=== PATIENT | female | born 1990 | race American Indian/Alaskan Native ===

== ENCOUNTER 2019-03-30 15:01 | Inpatient (IN) | payer OTHER ==
--- NOTE | 2019-03-30 15:29 | Event Note ---
ED Screening Note ED Screening Note: pt reports she had a "blood sugar of 600" at home reports she took 35 units of humalog +N/V since this morning no diarrhea no fever BG is 84 in triage This initial assessment/diagnostic orders/clinical plan/treatment(s) is/are subject to change based on patients health status, clinical progression and re- assessment by fellow clinical providers in the ED. Further treatment and workup at subsequent clinical providers discretion. Patient/guardian urged not to elope from the ED as their condition may be serious if not clinically assessed and managed. Initial orders include: UA, urine preg, labs
[2019-03-30] MEDS ORDERED: ONDANSETRON 4 MG/2 ML INJ IV ONE (16:00)
[2019-03-30] MEDS ORDERED: SODIUM CHLORIDE 0.9% 1000 ML 1,000 ML IV ONE ×2 (16:00→17:38)
[2019-03-30] MEDS ORDERED: ONDANSETRON 4 MG/2 ML INJ ONE (16:00)
[2019-03-30] MEDS ORDERED: SODIUM CHLORIDE 0.9% 1000 ML 1,000 ML ONE (16:01)
[2019-03-30 16:04] LABS: Basophils # (Auto) 0.1 K/mm3 (0.0-0.1); Basophils % (Auto) 0.7 % (0.0-1.8); Eosinophils % (Auto) 0.1 % (0.0-4.3); Hematocrit 34.6 % (30.3-42.9); Hemoglobin 11.1 gm/dl (10.1-14.3); Lymphocytes # (Auto) 1.8 K/mm3 (1.2-5.4); Mean Corpuscular HGB Conc 32 % (30-34); Mean Corpuscular Volume 79 fl (79-97); Monocytes # (Auto) 0.9 K/mm3 (0.0-0.8); Platelet Count 337 K/mm3 (140-440); Red Blood Count 4.39 M/mm3 (3.65-5.03); Red Cell Distribution Width 17.3 % (13.2-15.2)
[2019-03-30 16:24] LABS: Alanine Aminotransferase 19 units/L (7-56); BUN/Creatinine Ratio 23; Blood Urea Nitrogen 18 mg/dL (7-17); Calcium 9.6 mg/dL (8.4-10.2); Hemolysis Index 17
[2019-03-30] MEDS ORDERED: MORPHINE 4 MG/1 ML INJ IV ONE ×2 (16:40)
--- NOTE | 2019-03-30 17:06 | Emergency Department Report ---
ED Abdominal Pain HPI - General Chief Complaint: Abdominal Pain Stated Complaint: DIABETIC Time Seen by Provider: 03/30/19 15:27 Source: patient Mode of arrival: Ambulatory Limitations: No Limitations - History of Present Illness Initial Comments: Louisa is a 29 yo female with hx of type 1 diabetes since age 7 and diabetic gastroparesis who presents with abdominal pain nausea and vomiting for the past day. She has severe diffuse abdominal pain 10 on a 10 crampy sharp in nature. Gradual onset. She explains that morphine normally improves her pain. No radiation of the pain. She has follow-up with a new GI physician later this month. she receives primary care at the [facility]. Complaint: abdominal pain -: Gradual, days(s) (1) Location: diffuse Radiation: none Migration to: no migration Severity: severe Severity scale (0 -10): 9 Quality: cramping, sharp Improves With: nothing Worsens With: nothing Context: other (history of recurrent abdominal pain, history of several hospitalizations for similar pain) Associated Symptoms: nausea, vomiting - Related Data Previous Rx's Medication Instructions Recorded Last Taken Type Famotidine [Pepcid] 20 mg PO BID #60 tablet 03/09/15 Unknown Rx Insulin NPH/Regular [NovoLIN 70/30] 20 unit SQ QPM #30 ml 03/10/15 04/28/15 Rx Insulin NPH/Regular [NovoLIN 70/30] 30 unit SQ QAM #30 ml 03/10/15 04/29/15 Rx Ondansetron [Zofran TAB] 4 mg PO Q8HR PRN #10 tablet 03/13/15 Unknown Rx HYDROcodone/APAP 5-325 [[place] 1 each PO Q6HR PRN #12 tablet 10/23/15 Unknown Rx 5-325 mg TAB] Allergies Allergy/AdvReac Type Severity Reaction Status Date / Time metoclopramide HCl AdvReac anxiety Verified 03/12/15 09:57 [facility] [place] [facility] ED Review of Systems ROS: Stated complaint: DIABETIC Other details as noted in HPI Comment: All other systems reviewed and negative Constitutional: denies: fever Cardiovascular: denies: chest pain Gastrointestinal: abdominal pain, nausea, vomiting. denies: diarrhea ED Past Medical Hx - Past Medical History Previous Medical History?: Yes Hx Congestive Heart Failure: No Hx Diabetes: Yes Hx GERD: Yes Hx Psychiatric Treatment: Yes (anxiety) Hx Asthma: No Hx COPD: No Hx HIV: No Additional medical history: Gastroparesis - Surgical History Past Surgical History?: No - Social History Smoking Status: Never Smoker Substance Use Type: None - Medications Home Medications: Home Medications Medication Instructions Recorded Confirmed Last Taken Type Famotidine [Pepcid] 20 mg PO BID #60 tablet 03/09/15 04/29/15 Unknown Rx Insulin NPH/Regular [NovoLIN 70/30] 20 unit SQ QPM #30 ml 03/10/15 04/29/15 04/28/15 Rx Insulin NPH/Regular [NovoLIN 70/30] 30 unit SQ QAM #30 ml 03/10/15 04/29/15 04/29/15 Rx Ondansetron [Zofran TAB] 4 mg PO Q8HR PRN #10 tablet 03/13/15 04/29/15 Unknown Rx HYDROcodone/APAP 5-325 [[place] 1 each PO Q6HR PRN #12 tablet 10/23/15 Unknown Rx 5-325 mg TAB] ED Physical Exam - General Limitations: No Limitations General appearance: alert, other (appears uncomfortable actively retching) - Head Head exam: Present: atraumatic, normocephalic - Eye Eye exam: Present: normal appearance - ENT ENT exam: Present: mucous membranes moist - Neck Neck exam: Present: normal inspection, full ROM - Respiratory Respiratory exam: Present: normal lung sounds bilaterally. Absent: respiratory distress, wheezes, rales, rhonchi - Cardiovascular Cardiovascular Exam: Present: regular rate, normal rhythm, normal heart sounds. Absent: systolic murmur, diastolic murmur, rubs, gallop - GI/Abdominal GI/Abdominal exam: Present: soft, normal bowel sounds. Absent: distended, tenderness, guarding, rebound - Extremities Exam Extremities exam: Present: normal inspection - Neurological Exam Neurological exam: Present: alert, oriented X3 - Psychiatric Psychiatric exam: Present: normal affect, normal mood - Skin Skin exam: Present: warm, dry, intact, normal color. Absent: rash ED Course Vital Signs 03/30/19 15:18 Temperature 98.4 F Pulse Rate 117 H Respiratory 22 Rate Blood Pressure 131/85 O2 Sat by Pulse 100 Oximetry ED Medical Decision Making - Lab Data Result diagrams: 03/30/19 15:45 03/30/19 15:45 Laboratory Results - last 24 hr 03/30/19 03/30/19 03/30/19 15:29 15:45 15:45 WBC 13.0 H RBC 4.39 Hgb 11.1 Hct 34.6 MCV 79 MCH 25 L MCHC 32 RDW 17.3 H Plt Count 337 Lymph % (Auto) 14.0 [place] % (Auto) 7.0 Eos % (Auto) 0.1 Baso % (Auto) 0.7 Lymph # 1.8 Graves # 0.9 H Eos # 0.0 Baso # 0.1 Seg Neutrophils % 78.2 H Seg Neutrophils # 10.1 H Sodium 140 Potassium 3.5 L Chloride 103.7 Carbon Dioxide 14 L Anion Gap 26 BUN 18 H Creatinine 0.8 Estimated GFR > 60 BUN/Creatinine Ratio 23 Glucose 97 POC Glucose 84 Calcium 9.6 Total Bilirubin 1.40 H AST 21 ALT 19 Alkaline Phosphatase 87 Total Protein 7.8 Albumin 4.0 Albumin/Globulin Ratio 1.1 Lipase 16 Laboratory Results - last 24 hr 03/30/19 03/30/19 03/30/19 15:29 15:45 15:45 WBC 13.0 H RBC 4.39 Hgb 11.1 Hct 34.6 MCV 79 MCH 25 L MCHC 32 RDW 17.3 H Plt Count 337 Lymph % (Auto) 14.0 [place] % (Auto) 7.0 Eos % (Auto) 0.1 Baso % (Auto) 0.7 Lymph # 1.8 [place] # 0.9 H Eos # 0.0 Baso # 0.1 Seg Neutrophils % 78.2 H Seg Neutrophils # 10.1 H Sodium 140 Potassium 3.5 L Chloride 103.7 Carbon Dioxide 14 L Anion Gap 26 BUN 18 H Creatinine 0.8 Estimated GFR > 60 BUN/Creatinine Ratio 23 Glucose 97 POC Glucose 84 Calcium 9.6 Total Bilirubin 1.40 H AST 21 ALT 19 Alkaline Phosphatase 87 Total Protein 7.8 Albumin 4.0 Albumin/Globulin Ratio 1.1 Lipase 16 Urine Color Urine Turbidity Urine pH Ur Specific [place] Urine Protein Urine Glucose (UA) Urine Ketones Urine Blood Urine Nitrite Urine Bilirubin Urine Urobilinogen Ur Leukocyte Esterase Urine WBC (Auto) Urine RBC (Auto) U Epithel Cells (Auto) Urine Bacteria (Auto) Urine Mucus Urine HCG, Qual 03/30/19 17:15 WBC RBC Hgb Hct MCV MCH MCHC RDW Plt Count Lymph % (Auto) [place] % (Auto) Eos % (Auto) Baso % (Auto) Lymph # [place] # Eos # Baso # Seg Neutrophils % Seg Neutrophils # Sodium Potassium Chloride Carbon Dioxide Anion Gap BUN Creatinine Estimated GFR BUN/Creatinine Ratio Glucose POC Glucose Calcium Total Bilirubin AST ALT Alkaline Phosphatase Total Protein Albumin Albumin/Globulin Ratio Lipase Urine Color Yellow Urine Turbidity Cloudy Urine pH 5.0 Ur Specific [place] 1.021 Urine Protein 100 mg/dl Urine Glucose (UA) >=500 Urine Ketones 80 Urine Blood Lg Urine Nitrite Neg Urine Bilirubin Neg Urine Urobilinogen < 2.0 Ur Leukocyte Esterase Tr Urine WBC (Auto) 12.0 H Urine RBC (Auto) 18.0 U Epithel Cells (Auto) 62.0 H Urine Bacteria (Auto) 4+ Urine Mucus Few Urine HCG, Qual Negative - Medical Decision Making Margarita presents recurrent diffuse abdominal pain and vomiting. Suspect starvation ketosis/volume contraction with increased anion gap and normal blood glucose. Will need admission for IV hydration and symptom control. I do not suspect acute intra-abdominal inflammatory process. Will not obtain imaging at this time without fever/imaging. She has had several CT scans. I am concerned for radiation exposure and possible nephrotoxicity IV contrast. she will be monitored on hospitalist service. I discussed case with Dr. Kumar who agreed to admit Ms. Kaur to Med/Surg floor. UA contaminated with trace ketones. Critical care attestation.: If time is entered above; I have spent that time in minutes in the direct care of this critically ill patient, excluding procedure time. ED Disposition Clinical Impression: Acute abdominal pain, Gastroparesis, Insulin dependent diabetes mellitus, Ketosis Disposition: OP ADMIT IP TO THIS HOSP Is pt being admited?: Yes Does the pt Need Aspirin: No Condition: Stable
[2019-03-30] MEDS ORDERED: LORazepam 2 MG/ML VIAL IV ONE (17:07)
[2019-03-30 17:38] LABS: Bacteria,Urine 4+ /HPF (Negative); Bilirubin,Urine NEG (Negative); Blood,Urine LG (Negative); Color,Urine Yellow (Yellow); Mucus,Urine FEW /HPF; Urobilinogen,Urine < 2.0 mg/dL (<2.0)
[2019-03-30 17:42] LABS: HCG Qualitative,Urine Negative (Negative)
[2019-03-30] MEDS ORDERED: MORPHINE 4 MG/1 ML INJ ONE (19:46)
[2019-03-30] MEDS ORDERED: oxyCODONE /ACETAMINOPHEN 5-325MG TAB PO PRN (20:16)
[2019-03-30] MEDS ORDERED: ACETAMINOPHEN 325 MG TAB PO PRN (20:16)
[2019-03-30] MEDS: HYDROmorphone 1 MG/1 ML INJ IV PRN (20:45)
[2019-03-30] MEDS: INSULIN LISPRO 100 UNIT/ML SUB-Q SCH (22:19)
[2019-03-30] MEDS: ONDANSETRON 4 MG/2 ML INJ IV PRN (22:34)
[2019-03-30] MEDS ORDERED: SODIUM CHLORIDE 0.9% 1000 ML 1,000 ML IV SCH (23:45)
[2019-03-31] MEDS: HYDROmorphone 1 MG/1 ML INJ IV PRN ×6 (00:13→21:33)
[2019-03-31] MEDS: INSULIN LISPRO 100 UNIT/ML SUB-Q SCH ×2 (00:31→07:02)
[2019-03-31] MEDS: ONDANSETRON 4 MG/2 ML INJ IV PRN ×4 (02:49→17:03)
--- NOTE | 2019-03-31 04:10 | History and Physical Report ---
History of Present Illness Date of examination: 03/30/19 Date of admission: 03/30/19 17:26 Chief complaint: Abd pain and vomiting for 1 day History of present illness: 29 yo female with hx of type 1 diabetes since age 7 and diabetic gastroparesis who presents with abdominal pain nausea and vomiting for the past one day. She has severe diffuse abdominal pain 10 on a 10 crampy sharp in nature. Gradual onset. She explains that morphine normally improves her pain. No radiation of the pain. She has follow-up with a new GI physician later this month. she receives primary care at the [facility]. Past Medical History Previous Medical History?: Yes Diabetes GERD Anxiety Gastroparesis Surgical History Past Surgical History?: No Social History Smoking Status: Never Smoker Substance Use Type: None Family History Htn - Medications Home Medications: Home Medications Medication Instructions Recorded Confirmed Last Taken Type Famotidine [Pepcid] 20 mg PO BID #60 tablet 03/09/15 04/29/15 Unknown Rx Insulin NPH/Regular [NovoLIN 70/30] 20 unit SQ QPM #30 ml 03/10/15 04/29/15 04/28/15 Rx Insulin NPH/Regular [NovoLIN 70/30] 30 unit SQ QAM #30 ml 03/10/15 04/29/15 04/29/15 Rx Ondansetron [Zofran TAB] 4 mg PO Q8HR PRN #10 tablet 03/13/15 04/29/15 Unknown Rx HYDROcodone/APAP 5-325 [[place] 1 each PO Q6HR PRN #12 tablet 10/23/15 Unknown Rx 5-325 mg TAB] Review of Systems ROS: Stated complaint: DIABETIC Other details as noted in HPI Comment: All other systems reviewed and negative Constitutional: denies: fever Cardiovascular: denies: chest pain Gastrointestinal: abdominal pain, nausea, vomiting. denies: diarrhea Medications and Allergies Allergies Allergy/AdvReac Type Severity Reaction Status Date / Time metoclopramide HCl AdvReac anxiety Verified 03/12/15 09:57 [From Reglan] Active Meds: Active Medications Acetaminophen (Tylenol) 650 mg PO Q4H PRN PRN Reason: Pain MILD(1-3)/Fever >100.5/AGUIRRE Hydromorphone HCl (Dilaudid) 1 mg IV Q3H PRN PRN Reason: Pain , Severe (7-10) Last Admin: 03/31/19 00:13 Dose: 1 mg Documented by: Sodium Chloride (Nacl 0.9% 1000 Ml) 1,000 mls @ 100 mls/hr IV DIRECT WINIFRED Stop: 03/31/19 12:00 Insulin Human Lispro (Humalog) 0 unit SUB-Q Q6HR WINIFRED; Protocol Last Admin: 03/31/19 00:31 Dose: Not Given Documented by: Ondansetron HCl (Zofran) 4 mg IV Q3H PRN PRN Reason: Nausea And Vomiting Last Admin: 03/31/19 02:49 Dose: 4 mg Documented by: Oxycodone/Acetaminophen (Percocet 5/325) 1 tab PO Q6H PRN PRN Reason: Pain, Moderate (4-6) Sodium Chloride (Sodium Chloride Flush Syringe 10 Ml) 10 ml IV BID WINIFRED Last Admin: 03/30/19 22:16 Dose: 10 ml Documented by: Sodium Chloride (Sodium Chloride Flush Syringe 10 Ml) 10 ml IV PRN PRN PRN Reason: LINE FLUSH Exam - Constitutional Vitals: Temp Pulse Resp BP Pulse Ox 98.1 F 121 H 18 153/88 100 03/30/19 23:35 03/30/19 23:35 03/30/19 23:35 03/30/19 23:35 03/30/19 23:35 General appearance: Present: no acute distress, well-nourished - EENT Eyes: Present: PERRL ENT: hearing intact, clear oral mucosa - Neck Neck: Present: supple, normal ROM - Respiratory Respiratory effort: normal Respiratory: bilateral: CTA - Cardiovascular Heart rate: 78 Rhythm: regular Heart Sounds: Present: S1 & S2. Absent: rub, click - Extremities Extremities: pulses intact, pulses symmetrical, No edema Peripheral Pulses: within normal limits - Abdominal General gastrointestinal: Present: soft, tender, non-distended, normal bowel sounds Localized gastrointestinal: tender: diffuse Female genitourinary: Present: normal - Rectal Rectal Exam: deferred - Integumentary Integumentary: Present: clear, warm, dry - Musculoskeletal Musculoskeletal: gait normal, strength equal bilaterally - Psychiatric Psychiatric: appropriate mood/affect, intact judgment & insight - Neurologic Neurologic: CNII-XII intact, moves all extremities - Allied Health Allied health notes reviewed: nursing, case management Results - Labs CBC & Chem 7: 03/30/19 15:45 03/30/19 15:45 Labs: Laboratory Last Values WBC 13.0 K/mm3 (4.5-11.0) H 03/30/19 15:45 RBC 4.39 M/mm3 (3.65-5.03) 03/30/19 15:45 Hgb 11.1 gm/dl (10.1-14.3) 03/30/19 15:45 Hct 34.6 % (30.3-42.9) 03/30/19 15:45 MCV 79 fl (79-97) 03/30/19 15:45 MCH 25 pg (28-32) L 03/30/19 15:45 MCHC 32 % (30-34) 03/30/19 15:45 RDW 17.3 % (13.2-15.2) H 03/30/19 15:45 Plt Count 337 K/mm3 (140-440) 03/30/19 15:45 Lymph % (Auto) 14.0 % (13.4-35.0) 03/30/19 15:45 [place] % (Auto) 7.0 % (0.0-7.3) 03/30/19 15:45 Eos % (Auto) 0.1 % (0.0-4.3) 03/30/19 15:45 Baso % (Auto) 0.7 % (0.0-1.8) 03/30/19 15:45 Lymph # 1.8 K/mm3 (1.2-5.4) 03/30/19 15:45 [place] # 0.9 K/mm3 (0.0-0.8) H 03/30/19 15:45 Eos # 0.0 K/mm3 (0.0-0.4) 03/30/19 15:45 Baso # 0.1 K/mm3 (0.0-0.1) 03/30/19 15:45 Seg Neutrophils % 78.2 % (40.0-70.0) H 03/30/19 15:45 Seg Neutrophils # 10.1 K/mm3 (1.8-7.7) H 03/30/19 15:45 VBG pH 7.340 (7.320-7.420) 03/30/19 17:52 Sodium 140 mmol/L (137-145) 03/30/19 15:45 Potassium 3.5 mmol/L (3.6-5.0) L 03/30/19 15:45 Chloride 103.7 mmol/L (98-107) 03/30/19 15:45 Carbon Dioxide 14 mmol/L (22-30) L 03/30/19 15:45 Anion Gap 26 mmol/L 03/30/19 15:45 BUN 18 mg/dL (7-17) H 03/30/19 15:45 Creatinine 0.8 mg/dL (0.7-1.2) 03/30/19 15:45 Estimated GFR > 60 ml/min 03/30/19 15:45 BUN/Creatinine Ratio 23 % 03/30/19 15:45 Glucose 97 mg/dL (65-100) 03/30/19 15:45 POC Glucose 495 (70-105) H 03/30/19 21:54 Hemoglobin A1c 9.1 % (4-6) H 03/30/19 20:17 Ketones Quantitative Negative (Negative) 03/30/19 17:52 Calcium 9.6 mg/dL (8.4-10.2) 03/30/19 15:45 Total Bilirubin 1.40 mg/dL (0.1-1.2) H 03/30/19 15:45 AST 21 units/L (5-40) 03/30/19 15:45 ALT 19 units/L (7-56) 03/30/19 15:45 Alkaline Phosphatase 87 units/L (35-129) 03/30/19 15:45 Total Protein 7.8 g/dL (6.3-8.2) 03/30/19 15:45 Albumin 4.0 g/dL (3.9-5) 03/30/19 15:45 Albumin/Globulin Ratio 1.1 % 03/30/19 15:45 Lipase 16 units/L (13-60) 03/30/19 15:45 Urine Color Yellow (Yellow) 03/30/19 17:15 Urine Turbidity Cloudy (Clear) 03/30/19 17:15 Urine pH 5.0 (5.0-7.0) 03/30/19 17:15 Ur Specific [place] 1.021 (1.003-1.030) 03/30/19 17:15 Urine Protein 100 mg/dl mg/dL (Negative) 03/30/19 17:15 Urine Glucose (UA) >=500 mg/dL (Negative) 03/30/19 17:15 Urine Ketones 80 mg/dL (Negative) 03/30/19 17:15 Urine Blood Lg (Negative) 03/30/19 17:15 Urine Nitrite Neg (Negative) 03/30/19 17:15 Urine Bilirubin Neg (Negative) 03/30/19 17:15 Urine Urobilinogen < 2.0 mg/dL (<2.0) 03/30/19 17:15 Ur Leukocyte Esterase Tr (Negative) 03/30/19 17:15 Urine WBC (Auto) 12.0 /HPF (0.0-6.0) H 03/30/19 17:15 Urine RBC (Auto) 18.0 /HPF (0.0-6.0) 03/30/19 17:15 U Epithel Cells (Auto) 62.0 /HPF (0-13.0) H 03/30/19 17:15 Urine Bacteria (Auto) 4+ /HPF (Negative) 03/30/19 17:15 Urine Mucus Few /HPF 03/30/19 17:15 Urine HCG, Qual Negative (Negative) 03/30/19 17:15 Assessment and Plan Advance Directives: Yes (Full code) VTE prophylaxis?: Chemical Plan of care discussed with patient/family: Yes - Patient Problems (1) Gastroparesis Current Visit: Yes Status: Acute Plan to address problem: Cont IV Fluids. IV Reglan IV Zofran (2) Insulin dependent diabetes mellitus Current Visit: Yes Status: Chronic Plan to address problem: Cont Home insulin and coverage Check A1c (3) Hypokalemia Current Visit: Yes Status: Acute Plan to address problem: supplemented (4) DVT prophylaxis Current Visit: No Status: Acute Plan to address problem: Heparin and GI prophylaxis
[2019-03-31] MEDS ORDERED: POTASSIUM CHLORIDE ER 20 MEQ TAB PO ONE (04:20)
[2019-03-31] MEDS: POTASSIUM CHLORIDE 10 MEQ 10 MEQ/100 ML BAG IV SCH ×2 (06:42→07:43)
[2019-03-31 07:35] LABS: Mean Corpuscular HGB Conc 30 % (30-34); Mean Corpuscular Volume 84 fl (79-97); Platelet Count 348 K/mm3 (140-440); Red Blood Count 3.75 M/mm3 (3.65-5.03)
[2019-03-31 07:51] LABS: Hematocrit 31.3 % (30.3-42.9); Hemoglobin 9.4 gm/dl (10.1-14.3)
[2019-03-31 07:55] LABS: Alanine Aminotransferase 21 units/L (7-56); BUN/Creatinine Ratio 23; Blood Urea Nitrogen 27 mg/dL (7-17); Calcium 8.8 mg/dL (8.4-10.2); Hemolysis Index 1
[2019-03-31] MEDS ORDERED: SODIUM CHLORIDE 0.9% 1000 ML 1,000 ML IV ONE ×2 (09:55→12:33)
[2019-03-31] MEDS ORDERED: POTASSIUM CHLORIDE 20 MEQ 20 MEQ/100 ML BAG IV SCH ×2 (10:00)
--- NOTE | 2019-03-31 10:08 | Progress Note ---
Assessment and Plan Assessment and plan: --DKA : Transfer norman ICU Initiate DKA pathway aggressiveIV hydration, insulin drip Monitor electrolytes,Nothing by mouth Cr,Care consult. -Severe metabolic acidosis; secondary to DKA Aggressive IV hydration, replacement therapy if no improvement --Severe dehydration; Vigorous IV hydration Input output monitoring --Gastroparesis; Patient allergic to Metoclopramide, Zofran ,Supportive care --Hyperkalemia: hold potassium therapy monitor electrolytes --Obesity; BMI 40.0 Advise weight reduction many medically stable --DVT prophylaxis; Lovenox Monitor closely and adjust the management as needed. Cr Care time 50 min History Interval history: Patient was admitted with gastroparesis and uncontrolled diabetes this morning patient's blood sugars are >600 Metabolic acidosis, elevated Agap The patient is in mild distress, severely dehydrated Hospitalist Physical - Constitutional Vitals: Temp Pulse Resp BP Pulse Ox 98.6 F 119 H 18 105/48 100 03/31/19 06:28 03/31/19 06:28 03/31/19 06:28 03/31/19 06:28 03/31/19 06:28 General appearance: Present: severe distress, well-nourished - EENT Eyes: Present: PERRL, EOM intact - Neck Neck: Present: supple, normal ROM - Respiratory Respiratory effort: normal Respiratory: bilateral: diminished, negative: rales, rhonchi, wheezing - Cardiovascular Rhythm: regular Heart Sounds: Present: S1 & S2 - Extremities Extremities: no ischemia, No edema - Abdominal General gastrointestinal: soft, non-tender, non-distended, normal bowel sounds - Integumentary Integumentary: Present: clear, warm - Psychiatric Psychiatric: appropriate mood/affect, cooperative - Neurologic Neurologic: moves all extremities Results - Labs CBC & Chem 7: 03/31/19 07:09 03/31/19 07:09 Labs: Laboratory Last Values WBC 13.6 K/mm3 (4.5-11.0) H 03/31/19 07:09 RBC 3.75 M/mm3 (3.65-5.03) 03/31/19 07:09 Hgb 9.4 gm/dl (10.1-14.3) L 03/31/19 07:09 Hct 31.3 % (30.3-42.9) 03/31/19 07:09 MCV 84 fl (79-97) 03/31/19 07:09 MCH 25 pg (28-32) L 03/31/19 07:09 MCHC 30 % (30-34) 03/31/19 07:09 RDW 18.0 % (13.2-15.2) H 03/31/19 07:09 Plt Count 348 K/mm3 (140-440) 03/31/19 07:09 Lymph % (Auto) 14.0 % (13.4-35.0) 03/30/19 15:45 [place] % (Auto) 7.0 % (0.0-7.3) 03/30/19 15:45 Eos % (Auto) 0.1 % (0.0-4.3) 03/30/19 15:45 Baso % (Auto) 0.7 % (0.0-1.8) 03/30/19 15:45 Lymph # 1.8 K/mm3 (1.2-5.4) 03/30/19 15:45 [place] # 0.9 K/mm3 (0.0-0.8) H 03/30/19 15:45 Eos # 0.0 K/mm3 (0.0-0.4) 03/30/19 15:45 Baso # 0.1 K/mm3 (0.0-0.1) 03/30/19 15:45 Seg Neutrophils % Knit [place]ing [place] 03/31/19 07:09 Seg Neutrophils # 10.1 K/mm3 (1.8-7.7) H 03/30/19 15:45 VBG pH 7.340 (7.320-7.420) 03/30/19 17:52 Sodium 140 mmol/L (137-145) 03/31/19 07:09 Potassium 5.9 mmol/L (3.6-5.0) H D 03/31/19 07:09 Chloride 101.8 mmol/L (98-107) 03/31/19 07:09 Carbon Dioxide 8 mmol/L (22-30) L* 03/31/19 07:09 Anion Gap 36 mmol/L 03/31/19 07:09 BUN 27 mg/dL (7-17) H 03/31/19 07:09 Creatinine 1.2 mg/dL (0.7-1.2) 03/31/19 07:09 Estimated GFR > 60 ml/min 03/31/19 07:09 BUN/Creatinine Ratio 23 % 03/31/19 07:09 Glucose 681 mg/dL (65-100) H* 03/31/19 07:09 POC Glucose > 500 (70-105) H 03/31/19 07:41 Hemoglobin A1c 9.1 % (4-6) H 03/30/19 20:17 Ketones Quantitative Negative (Negative) 03/30/19 17:52 Calcium 8.8 mg/dL (8.4-10.2) 03/31/19 07:09 Total Bilirubin 1.00 mg/dL (0.1-1.2) 03/31/19 07:09 AST 20 units/L (5-40) 03/31/19 07:09 ALT 21 units/L (7-56) 03/31/19 07:09 Alkaline Phosphatase 85 units/L (35-129) 03/31/19 07:09 Total Protein 7.5 g/dL (6.3-8.2) 03/31/19 07:09 Albumin 4.0 g/dL (3.9-5) 03/31/19 07:09 Albumin/Globulin Ratio 1.1 % 03/31/19 07:09 Lipase 16 units/L (13-60) 03/30/19 15:45 Urine Color Yellow (Yellow) 03/30/19 17:15 Urine Turbidity Cloudy (Clear) 03/30/19 17:15 Urine pH 5.0 (5.0-7.0) 03/30/19 17:15 Ur Specific [place] 1.021 (1.003-1.030) 03/30/19 17:15 Urine Protein 100 mg/dl mg/dL (Negative) 03/30/19 17:15 Urine Glucose (UA) >=500 mg/dL (Negative) 03/30/19 17:15 Urine Ketones 80 mg/dL (Negative) 03/30/19 17:15 Urine Blood Lg (Negative) 03/30/19 17:15 Urine Nitrite Neg (Negative) 03/30/19 17:15 Urine Bilirubin Neg (Negative) 03/30/19 17:15 Urine Urobilinogen < 2.0 mg/dL (<2.0) 03/30/19 17:15 Ur Leukocyte Esterase Tr (Negative) 03/30/19 17:15 Urine WBC (Auto) 12.0 /HPF (0.0-6.0) H 03/30/19 17:15 Urine RBC (Auto) 18.0 /HPF (0.0-6.0) 03/30/19 17:15 U Epithel Cells (Auto) 62.0 /HPF (0-13.0) H 03/30/19 17:15 Urine Bacteria (Auto) 4+ /HPF (Negative) 03/30/19 17:15 Urine Mucus Few /HPF 03/30/19 17:15 Urine HCG, Qual Negative (Negative) 03/30/19 17:15 Active Medications - Current Medications Current Medications: Generic Name Dose Route Start Last Admin Trade Name Freq PRN Reason Stop Dose Admin Acetaminophen 650 mg 03/30/19 20:16 Tylenol PO Q4H PRN Pain MILD(1-3)/Fever >100.5/AGUIRRE Heparin Sodium (Porcine) 5,000 unit 03/31/19 10:00 Heparin SUB-Q Q12HR ON LICENSE OF [facility] Hydromorphone HCl 1 mg 03/30/19 20:16 03/31/19 05:48 Dilaudid IV 1 mg Q3H PRN Administration Pain , Severe (7-10) Sodium Chloride 1,000 mls @ 100 mls/hr 03/30/19 23:45 Nacl 0.9% 1000 Ml IV 03/31/19 12:00 DIRECT WINIFRED Insulin Human Regular 100 100 mls @ 1 mls/hr 03/31/19 10:00 units/ Sodium Chloride IV TITR WINIFRED Protocol 1 UNITS/HR Sodium Chloride 1,000 mls @ 999 mls/hr 03/31/19 09:55 Nacl 0.9% 1000 Ml IV 03/31/19 10:55 BOLUS ONE Potassium Chloride 20 meq in 100 mls @ 100 mls/hr 03/31/19 10:00 Kcl 20meq/100ml IV 03/31/19 12:59 Q1H WINIFRED Potassium Chloride 20 meq in 100 mls @ 100 mls/hr 03/31/19 10:00 Kcl 20meq/100ml IV 03/31/19 11:59 Q1H WINIFRED Insulin Human Lispro 0 unit 03/30/19 21:00 03/31/19 07:02 Humalog SUB-Q 8 unit Q6HR WINIFRED Administration Protocol Ondansetron HCl 4 mg 03/30/19 20:16 03/31/19 05:48 Zofran IV 4 mg Q3H PRN Administration Nausea And Vomiting Oxycodone/Acetaminophen 1 tab 03/30/19 20:16 Percocet 5/325 PO Q6H PRN Pain, Moderate (4-6) Sodium Chloride 10 ml 03/30/19 22:00 03/30/19 22:16 Sodium Chloride Flush Syringe 10 Ml IV 10 ml BID WINIFRED Administration Sodium Chloride 10 ml 03/30/19 20:16 Sodium Chloride Flush Syringe 10 Ml IV PRN PRN LINE FLUSH
[2019-03-31] MEDS: HEPARIN 5,000 UNIT/1 ML VIAL SUB-Q SCH ×2 (10:25→21:37)
[2019-03-31 11:21] LABS: Basophils % (Manual) 0 % (0.0-1.8); Eosinophils % (Manual) 0 % (0.0-4.3); Total Cells Counted 100
[2019-03-31 11:23] LABS: Hypochromasia Few; Platelet Estimate Consistent w Auto
[2019-03-31] MEDS ORDERED: SODIUM CHLORIDE 0.9% 1000 ML 1,000 ML IV SCH (12:15)
[2019-03-31] MEDS ORDERED: PROMETHAZINE 12.5 MG RECT SUPP PR PRN (12:34)
[2019-03-31] MEDS: INSULIN REGULAR, HUMAN 100 UNITS in SODIUM CHLORIDE 0.9% 99 ML IV SCH (12:36)
[2019-03-31] MEDS ORDERED: DEXTROSE 50% IN WATER (25GM) 50 ML SYRINGE IV PRN (12:38)
[2019-03-31] MEDS ORDERED: INSULIN REGULAR, HUMAN 100 UNITS in SODIUM CHLORIDE 0.9% 99 ML IV SCH (13:00)
--- NOTE | 2019-03-31 13:23 | Consultation ---
History of Present Illness - Reason for Consult Consult date: 03/31/19 DKA Requesting physician: PAIGE MCFARLAND - History of Present Illness 29 y/o female who was admitted nausea vomiting and abdominal pain. Has known type 1 diabetes and gastoparesis. patient was admitted to the floor but labs this am show elevated blood sugar and CO2 of 8. Pt transitioned to the ICU for further management. Past History Past Medical History: diabetes Social history: no significant social history Family history: no significant family history Medications and Allergies Allergies Allergy/AdvReac Type Severity Reaction Status Date / Time metoclopramide HCl AdvReac anxiety Verified 03/12/15 09:57 [From Reglan] Active Meds: Active Medications Acetaminophen (Tylenol) 650 mg PO Q4H PRN PRN Reason: Pain MILD(1-3)/Fever >100.5/AGUIRRE Dextrose (D50w (25gm) Syringe) 0 ml IV Q30MIN PRN; Protocol PRN Reason: Hypoglycemia Heparin Sodium (Porcine) (Heparin) 5,000 unit SUB-Q Q12HR WINIFRED Last Admin: 03/31/19 10:25 Dose: Not Given Documented by: Hydromorphone HCl (Dilaudid) 1 mg IV Q3H PRN PRN Reason: Pain , Severe (7-10) Last Admin: 03/31/19 13:00 Dose: 1 mg Documented by: Insulin Human Regular 100 (units/ Sodium Chloride) 100 mls @ 1 mls/hr IV TITR WINIFRED; Protocol Last Admin: 03/31/19 12:36 Dose: 8 units/hr, 8 mls/hr Documented by: Sodium Chloride (Nacl 0.9% 1000 Ml) 1,000 mls @ 150 mls/hr IV DIRECT WINIFRED Last Admin: 03/31/19 12:19 Dose: 150 mls/hr Documented by: Potassium Chloride/Dextrose/Sod Cl (D5w/0.45% Nacl/Kcl 20 Meq) 20 meq in 1,000 mls @ 125 mls/hr IV DIRECT WINIFRED Ondansetron HCl (Zofran) 4 mg IV Q3H PRN PRN Reason: Nausea And Vomiting Last Admin: 03/31/19 12:17 Dose: 4 mg Documented by: Oxycodone/Acetaminophen (Percocet 5/325) 1 tab PO Q6H PRN PRN Reason: Pain, Moderate (4-6) Promethazine HCl (Phenergan) 12.5 mg MS Q6H PRN PRN Reason: Nausea And Vomiting Last Admin: 03/31/19 12:57 Dose: 12.5 mg Documented by: Sodium Chloride (Sodium Chloride Flush Syringe 10 Ml) 10 ml IV BID WINIFRED Last Admin: 03/31/19 10:25 Dose: Not Given Documented by: Sodium Chloride (Sodium Chloride Flush Syringe 10 Ml) 10 ml IV PRN PRN PRN Reason: LINE FLUSH Review of Systems All systems: negative Exam - Constitutional Vitals: Temp Pulse Resp BP Pulse Ox 98.1 F 124 H 21 97/47 99 03/31/19 11:00 03/31/19 13:08 03/31/19 13:10 03/31/19 10:31 03/31/19 10:31 Results - Labs CBC & Chem 7: 03/31/19 07:09 03/31/19 07:09 Labs: Abnormal lab results 03/30/19 03/30/19 03/30/19 Range/Units 15:45 15:45 17:15 WBC 13.0 H (4.5-11.0) K/mm3 Hgb (10.1-14.3) gm/dl MCH 25 L (28-32) pg RDW 17.3 H (13.2-15.2) % [place] # 0.9 H (0.0-0.8) K/mm3 Seg Neutrophils % 78.2 H (40.0-70.0) % Seg Neuts % (Manual) (40.0-70.0) % Lymphocytes % (Manual) (13.4-35.0) % Seg Neutrophils # 10.1 H (1.8-7.7) K/mm3 Seg Neutrophils # Man (1.8-7.7) K/mm3 Lymphocytes # (Manual) (1.2-5.4) K/mm3 Potassium 3.5 L (3.6-5.0) mmol/L Carbon Dioxide 14 L (22-30) mmol/L BUN 18 H (7-17) mg/dL Glucose (65-100) mg/dL POC Glucose (70-105) Hemoglobin A1c (4-6) % Total Bilirubin 1.40 H (0.1-1.2) mg/dL Urine WBC (Auto) 12.0 H (0.0-6.0) /HPF U Epithel Cells (Auto) 62.0 H (0-13.0) /HPF 03/30/19 03/30/19 03/31/19 Range/Units 20:17 21:54 06:35 WBC (4.5-11.0) K/mm3 Hgb (10.1-14.3) gm/dl MCH (28-32) pg RDW (13.2-15.2) % [place] # (0.0-0.8) K/mm3 Seg Neutrophils % (40.0-70.0) % Seg Neuts % (Manual) (40.0-70.0) % Lymphocytes % (Manual) (13.4-35.0) % Seg Neutrophils # (1.8-7.7) K/mm3 Seg Neutrophils # Man (1.8-7.7) K/mm3 Lymphocytes # (Manual) (1.2-5.4) K/mm3 Potassium (3.6-5.0) mmol/L Carbon Dioxide (22-30) mmol/L BUN (7-17) mg/dL Glucose (65-100) mg/dL POC Glucose 495 H > 500 H (70-105) Hemoglobin A1c 9.1 H (4-6) % Total Bilirubin (0.1-1.2) mg/dL Urine WBC (Auto) (0.0-6.0) /HPF U Epithel Cells (Auto) (0-13.0) /HPF 03/31/19 03/31/19 03/31/19 Range/Units 07:09 07:09 07:41 WBC 13.6 H (4.5-11.0) K/mm3 Hgb 9.4 L (10.1-14.3) gm/dl MCH 25 L (28-32) pg RDW 18.0 H (13.2-15.2) % [place] # (0.0-0.8) K/mm3 Seg Neutrophils % (40.0-70.0) % Seg Neuts % (Manual) 93.0 H (40.0-70.0) % Lymphocytes % (Manual) 6.0 L (13.4-35.0) % Seg Neutrophils # (1.8-7.7) K/mm3 Seg Neutrophils # Man 12.6 H (1.8-7.7) K/mm3 Lymphocytes # (Manual) 0.8 L (1.2-5.4) K/mm3 Potassium 5.9 H D (3.6-5.0) mmol/L Carbon Dioxide 8 L* (22-30) mmol/L BUN 27 H (7-17) mg/dL Glucose 681 H* (65-100) mg/dL POC Glucose > 500 H (70-105) Hemoglobin A1c (4-6) % Total Bilirubin (0.1-1.2) mg/dL Urine WBC (Auto) (0.0-6.0) /HPF U Epithel Cells (Auto) (0-13.0) /HPF 03/31/19 Range/Units 12:46 WBC (4.5-11.0) K/mm3 Hgb (10.1-14.3) gm/dl MCH (28-32) pg RDW (13.2-15.2) % [place] # (0.0-0.8) K/mm3 Seg Neutrophils % (40.0-70.0) % Seg Neuts % (Manual) (40.0-70.0) % Lymphocytes % (Manual) (13.4-35.0) % Seg Neutrophils # (1.8-7.7) K/mm3 Seg Neutrophils # Man (1.8-7.7) K/mm3 Lymphocytes # (Manual) (1.2-5.4) K/mm3 Potassium (3.6-5.0) mmol/L Carbon Dioxide (22-30) mmol/L BUN (7-17) mg/dL Glucose (65-100) mg/dL POC Glucose 483 H (70-105) Hemoglobin A1c (4-6) % Total Bilirubin (0.1-1.2) mg/dL Urine WBC (Auto) (0.0-6.0) /HPF U Epithel Cells (Auto) (0-13.0) /HPF Assessment and Plan 29 y/o female, type 1 diabetic, admitted with DKA 1. NPO 2. IVF's, will given 2 additional boluses 3. Patient allergic to Reglan. Asleep right now from dilaudid given for pain. Will need to find out what allergy is. 4. Insulin drip 5. Q1hour FSBS. Once less than 250, switch to D5. 6. Will need chemistries every 6 hours. CCT 31 minutes.
[2019-03-31] MEDS ORDERED: SODIUM CHLORIDE 0.9% 1000 ML 2,000 ML IV ONE (14:00)
[2019-03-31] MEDS ORDERED: oxyCODONE /ACETAMINOPHEN 5-325MG TAB PO PRN (15:01)
[2019-03-31] MEDS: LORazepam 0.5 MG TAB PO PRN (16:04)
[2019-03-31] MEDS: D5W/0.45% NACL/KCL 20 MEQ 20 MEQ/1,000 ML BAG IV SCH ×2 (16:08→23:33)
[2019-03-31 16:10] LABS: Calcium 7.7 mg/dL (8.4-10.2)
[2019-03-31 23:57] LABS: BUN/Creatinine Ratio 17; Blood Urea Nitrogen 15 mg/dL (7-17); Calcium 8.1 mg/dL (8.4-10.2); Hemolysis Index 37
[2019-04-01] MEDS: HYDROmorphone 1 MG/1 ML INJ IV PRN ×2 (01:51→05:55)
[2019-04-01] MEDS: ONDANSETRON 4 MG/2 ML INJ IV PRN ×3 (01:51→23:30)
[2019-04-01] MEDS: INSULIN REGULAR, HUMAN 100 UNITS in SODIUM CHLORIDE 0.9% 99 ML IV SCH (03:51)
[2019-04-01 05:24] LABS: BUN/Creatinine Ratio 13; Blood Urea Nitrogen 9 mg/dL (7-17); Calcium 8.5 mg/dL (8.4-10.2); Hemolysis Index 25
[2019-04-01] MEDS ORDERED: HYDROmorphone 1 MG/1 ML INJ IV PRN (08:18)
[2019-04-01] MEDS: D5W/0.45% NACL/KCL 20 MEQ 20 MEQ/1,000 ML BAG IV SCH (08:42)
[2019-04-01] MEDS ORDERED: POTASSIUM PHOSPHATE 40 MMOL in SODIUM CHLORIDE 0.9% 500 ML 500 ML IV ONE (09:00)
[2019-04-01] MEDS: HEPARIN 5,000 UNIT/1 ML VIAL SUB-Q SCH ×2 (10:00→22:11)
[2019-04-01] MEDS: PROMETHAZINE 25 MG RECT SUPP PR PRN ×2 (10:02→16:25)
--- NOTE | 2019-04-01 10:26 | Progress Note ---
Assessment and Plan Assessment and plan: --DKA : Improved Blood sugars reasonably level, start ADA diet DC insulin drip, start long-acting insulin Change IV fluids to normal saline Diabetic education, diabetic diet education Closely monitor blood sugars and adjust management as needed Hemoglobin A1c 9.1 -Severe metabolic acidosis; secondary to DKA Significantly improved, continue IV hydration --Severe dehydration; encourage plenty fluids Vigorous IV hydration Input output monitoring --Gastroparesis; Patient allergic to Metoclopramide, The new Zofran ,Supportive care --Hypokalemia/hypophosphatemia Replace with K-Phos closely monitor electrolytes: --DVT prophylaxis; Lovenox Monitor closely and adjust the management as needed. If patient's blood sugars are reasonably level and is able to tolerate oral nutrition Patient may be transferred to ICU medical flow Case management for discharge planning Home healthfor disease monitoring Caregiver to the patient, her nurse and case management Cr Care time 40 min History Interval history: Patient seen and examined medical records reviewed Patient was admitted to ICU yesterday for DKA severe acidosis Intractable nausea vomiting, on DKA Patient's sugars are reasonable level, and the wound closed Acidosis improved, gastroparesis mild improvement Start ADA diet, DC insulin drip, long-acting insulin Patient complains of nausea, denies vomiting Vital signs reviewed Hospitalist Physical - Constitutional Vitals: Temp Pulse Resp BP Pulse Ox 97.8 F 111 H 12 151/69 100 04/01/19 08:00 04/01/19 08:00 04/01/19 08:00 03/31/19 16:41 04/01/19 08:00 General appearance: Present: no acute distress, well-nourished - EENT Eyes: Present: PERRL, EOM intact - Neck Neck: Present: supple, normal ROM - Respiratory Respiratory effort: normal Respiratory: bilateral: diminished, negative: rales, rhonchi, wheezing - Cardiovascular Rhythm: regular Heart Sounds: Present: S1 & S2 - Extremities Extremities: no ischemia, pulses intact - Abdominal General gastrointestinal: soft, non-tender, non-distended, normal bowel sounds - Integumentary Integumentary: Present: clear, warm - Psychiatric Psychiatric: appropriate mood/affect, cooperative - Neurologic Neurologic: CNII-XII intact, moves all extremities Results - Labs CBC & Chem 7: 03/31/19 07:09 04/01/19 04:34 Labs: Laboratory Last Values WBC 13.6 K/mm3 (4.5-11.0) H 03/31/19 07:09 RBC 3.75 M/mm3 (3.65-5.03) 03/31/19 07:09 Hgb 9.4 gm/dl (10.1-14.3) L 03/31/19 07:09 Hct 31.3 % (30.3-42.9) 03/31/19 07:09 MCV 84 fl (79-97) 03/31/19 07:09 MCH 25 pg (28-32) L 03/31/19 07:09 MCHC 30 % (30-34) 03/31/19 07:09 RDW 18.0 % (13.2-15.2) H 03/31/19 07:09 Plt Count 348 K/mm3 (140-440) 03/31/19 07:09 Lymph % (Auto) 14.0 % (13.4-35.0) 03/30/19 15:45 [place] % (Auto) 7.0 % (0.0-7.3) 03/30/19 15:45 Eos % (Auto) 0.1 % (0.0-4.3) 03/30/19 15:45 Baso % (Auto) 0.7 % (0.0-1.8) 03/30/19 15:45 Lymph # 1.8 K/mm3 (1.2-5.4) 03/30/19 15:45 [place] # 0.9 K/mm3 (0.0-0.8) H 03/30/19 15:45 Eos # 0.0 K/mm3 (0.0-0.4) 03/30/19 15:45 Baso # 0.1 K/mm3 (0.0-0.1) 03/30/19 15:45 Add Manual Diff Complete 03/31/19 07:09 Total Counted 100 03/31/19 07:09 Seg Neutrophils % Manager Of Procurement 03/31/19 07:09 Seg Neuts % (Manual) 93.0 % (40.0-70.0) H 03/31/19 07:09 Band Neutrophils % 0 % 03/31/19 07:09 Lymphocytes % (Manual) 6.0 % (13.4-35.0) L 03/31/19 07:09 Reactive Lymphs % (Man) 0 % 03/31/19 07:09 Monocytes % (Manual) 1.0 % (0.0-7.3) 03/31/19 07:09 Eosinophils % (Manual) 0 % (0.0-4.3) 03/31/19 07:09 Basophils % (Manual) 0 % (0.0-1.8) 03/31/19 07:09 Metamyelocytes % 0 % 03/31/19 07:09 Myelocytes % 0 % 03/31/19 07:09 Promyelocytes % 0 % 03/31/19 07:09 Blast Cells % 0 % 03/31/19 07:09 Nucleated RBC % Not Reportable 03/31/19 07:09 Seg Neutrophils # 10.1 K/mm3 (1.8-7.7) H 03/30/19 15:45 Seg Neutrophils # Man 12.6 K/mm3 (1.8-7.7) H 03/31/19 07:09 Band Neutrophils # 0.0 K/mm3 03/31/19 07:09 Lymphocytes # (Manual) 0.8 K/mm3 (1.2-5.4) L 03/31/19 07:09 Abs React Lymphs (Man) 0.0 K/mm3 03/31/19 07:09 Monocytes # (Manual) 0.1 K/mm3 (0.0-0.8) 03/31/19 07:09 Eosinophils # (Manual) 0.0 K/mm3 (0.0-0.4) 03/31/19 07:09 Basophils # (Manual) 0.0 K/mm3 (0.0-0.1) 03/31/19 07:09 Metamyelocytes # 0.0 K/mm3 03/31/19 07:09 Myelocytes # 0.0 K/mm3 03/31/19 07:09 Promyelocytes # 0.0 K/mm3 03/31/19 07:09 Blast Cells # 0.0 K/mm3 03/31/19 07:09 WBC Morphology Not Reportable 03/31/19 07:09 Hypersegmented Neuts Not Reportable 03/31/19 07:09 Hyposegmented Neuts Not Reportable 03/31/19 07:09 Hypogranular Neuts Not Reportable 03/31/19 07:09 Smudge Cells Not Reportable 03/31/19 07:09 Toxic Granulation Not Reportable 03/31/19 07:09 Toxic Vacuolation Not Reportable 03/31/19 07:09 Dohle Bodies Not Reportable 03/31/19 07:09 Pelger-Huet Anomaly Not Reportable 03/31/19 07:09 Padmini Rods Not Reportable 03/31/19 07:09 Platelet Estimate Consistent w auto 03/31/19 07:09 Clumped Platelets Not Reportable 03/31/19 07:09 Plt Clumps, EDTA Not Reportable 03/31/19 07:09 Large Platelets Not Reportable 03/31/19 07:09 Giant Platelets Not Reportable 03/31/19 07:09 Platelet Satelliting Not Reportable 03/31/19 07:09 Plt Morphology Comment Not Reportable 03/31/19 07:09 RBC Morphology Not Reportable 03/31/19 07:09 Dimorphic RBCs Not Reportable 03/31/19 07:09 Polychromasia Not Reportable 03/31/19 07:09 Hypochromasia Few 03/31/19 07:09 Poikilocytosis Not Reportable 03/31/19 07:09 Anisocytosis Not Reportable 03/31/19 07:09 Microcytosis Not Reportable 03/31/19 07:09 Macrocytosis Not Reportable 03/31/19 07:09 Spherocytes Not Reportable 03/31/19 07:09 Pappenheimer Bodies Not Reportable 03/31/19 07:09 Sickle Cells Not Reportable 03/31/19 07:09 Target Cells Not Reportable 03/31/19 07:09 Tear Drop Cells Not Reportable 03/31/19 07:09 Ovalocytes Not Reportable 03/31/19 07:09 Helmet Cells Not Reportable 03/31/19 07:09 [place] Bodies Not Reportable 03/31/19 07:09 [place] Rings Not Reportable 03/31/19 07:09 [place] Cells Not Reportable 03/31/19 07:09 Bite Cells Not Reportable 03/31/19 07:09 Crenated Cell Not Reportable 03/31/19 07:09 Elliptocytes Few 03/31/19 07:09 Acanthocytes (Spur) Not Reportable 03/31/19 07:09 Rouleaux Not Reportable 03/31/19 07:09 Hemoglobin C Crystals Not Reportable 03/31/19 07:09 Schistocytes Not Reportable 03/31/19 07:09 Malaria parasites Not Reportable 03/31/19 07:09 [place] Bodies Not Reportable 03/31/19 07:09 Hem Pathologist Commnt No 03/31/19 07:09 VBG pH 7.340 (7.320-7.420) 03/30/19 17:52 Sodium 139 mmol/L (137-145) D 04/01/19 04:34 Potassium 3.5 mmol/L (3.6-5.0) L D 04/01/19 04:34 Chloride 105.7 mmol/L (98-107) 04/01/19 04:34 Carbon Dioxide 17 mmol/L (22-30) L 04/01/19 04:34 Anion Gap 20 mmol/L 04/01/19 04:34 BUN 9 mg/dL (7-17) 04/01/19 04:34 Creatinine 0.7 mg/dL (0.7-1.2) 04/01/19 04:34 Estimated GFR > 60 ml/min 04/01/19 04:34 BUN/Creatinine Ratio 13 % 04/01/19 04:34 Glucose 177 mg/dL (65-100) H 04/01/19 04:34 POC Glucose 160 (70-105) H 04/01/19 08:48 Hemoglobin A1c 9.1 % (4-6) H 03/30/19 20:17 Ketones Quantitative Negative (Negative) 03/30/19 17:52 Calcium 8.5 mg/dL (8.4-10.2) 04/01/19 04:34 Phosphorus 1.50 mg/dL (2.5-4.5) L D 04/01/19 04:34 Magnesium 1.80 mg/dL (1.7-2.3) 04/01/19 04:34 Total Bilirubin 1.00 mg/dL (0.1-1.2) 03/31/19 07:09 AST 20 units/L (5-40) 03/31/19 07:09 ALT 21 units/L (7-56) 03/31/19 07:09 Alkaline Phosphatase 85 units/L (35-129) 03/31/19 07:09 Total Protein 7.5 g/dL (6.3-8.2) 03/31/19 07:09 Albumin 4.0 g/dL (3.9-5) 03/31/19 07:09 Albumin/Globulin Ratio 1.1 % 03/31/19 07:09 Lipase 16 units/L (13-60) 03/30/19 15:45 Urine Color Yellow (Yellow) 03/30/19 17:15 Urine Turbidity Cloudy (Clear) 03/30/19 17:15 Urine pH 5.0 (5.0-7.0) 03/30/19 17:15 Ur Specific [place] 1.021 (1.003-1.030) 03/30/19 17:15 Urine Protein 100 mg/dl mg/dL (Negative) 03/30/19 17:15 Urine Glucose (UA) >=500 mg/dL (Negative) 03/30/19 17:15 Urine Ketones 80 mg/dL (Negative) 03/30/19 17:15 Urine Blood Lg (Negative) 03/30/19 17:15 Urine Nitrite Neg (Negative) 03/30/19 17:15 Urine Bilirubin Neg (Negative) 03/30/19 17:15 Urine Urobilinogen < 2.0 mg/dL (<2.0) 03/30/19 17:15 Ur Leukocyte Esterase Tr (Negative) 03/30/19 17:15 Urine WBC (Auto) 12.0 /HPF (0.0-6.0) H 03/30/19 17:15 Urine RBC (Auto) 18.0 /HPF (0.0-6.0) 03/30/19 17:15 U Epithel Cells (Auto) 62.0 /HPF (0-13.0) H 03/30/19 17:15 Urine Bacteria (Auto) 4+ /HPF (Negative) 03/30/19 17:15 Urine Mucus Few /HPF 03/30/19 17:15 Urine HCG, Qual Negative (Negative) 03/30/19 17:15 Active Medications - Current Medications Current Medications: Generic Name Dose Route Start Last Admin Trade Name Freq PRN Reason Stop Dose Admin Acetaminophen 650 mg 03/30/19 20:16 Tylenol PO Q4H PRN Pain MILD(1-3)/Fever >100.5/AGUIRRE Alprazolam 0.25 mg 03/31/19 15:09 Xanax PO Q8H PRN Anxiety Dextrose 0 ml 03/31/19 12:38 D50w (25gm) Syringe IV Q30MIN PRN Hypoglycemia Protocol Heparin Sodium (Porcine) 5,000 unit 03/31/19 10:00 04/01/19 10:00 Heparin SUB-Q 5,000 unit Q12HR WINIFRED Administration Hydromorphone HCl 0.5 mg 04/01/19 08:18 04/01/19 09:10 Dilaudid IV 0.5 mg Q6H PRN Administration Pain , Severe (7-10) Sodium Chloride 1,000 mls @ 150 mls/hr 03/31/19 12:15 03/31/19 12:19 Nacl 0.9% 1000 Ml IV 150 mls/hr DIRECT WINIFRED Administration Potassium Phosphate 40 mmol/ 513.3333 mls @ 83 mls/hr 04/01/19 09:00 04/01/19 09:08 Sodium Chloride IV 04/01/19 15:11 83 mls/hr ONCE ONE Administration Sodium Chloride 1,000 mls @ 150 mls/hr 04/01/19 10:30 Nacl 0.9% 1000 Ml IV DIRECT WINIFRED Insulin Human Isoph/Insulin Regular 8 unit 04/01/19 17:00 Humulin 70/30 SUB-Q BIDDIAB WINIFRED Insulin Human Lispro 0 unit 04/01/19 11:30 Humalog SUB-Q ACHS [facility] Protocol Lorazepam 0.5 mg 03/31/19 15:35 03/31/19 16:04 Ativan PO 0.5 mg Q6H PRN Administration Agitation Ondansetron HCl 4 mg 03/30/19 20:16 04/01/19 05:55 Zofran IV 4 mg Q3H PRN Administration Nausea And Vomiting Oxycodone/Acetaminophen 1 tab 03/31/19 15:01 Percocet 5/325 PO Q6H PRN Pain, Moderate (4-6) Promethazine HCl 25 mg 04/01/19 11:00 04/01/19 10:02 Phenergan OR 25 mg Q6H PRN Administration Nausea And Vomiting Sodium Chloride 10 ml 03/30/19 22:00 04/01/19 01:55 Sodium Chloride Flush Syringe 10 Ml IV 10 ml BID WINIFRED Administration Sodium Chloride 10 ml 03/30/19 20:16 Sodium Chloride Flush Syringe 10 Ml IV PRN PRN LINE FLUSH
[2019-04-01] MEDS ORDERED: SODIUM CHLORIDE 0.9% 1000 ML 1,000 ML IV SCH (10:30)
[2019-04-01] MEDS: D5W/0.45% NACL 1,000 ML IV SCH (10:58)
[2019-04-01] MEDS: INSULIN NPH/REGULAR 70/30 INJ SUB-Q SCH ×2 (11:02→17:32)
[2019-04-01] MEDS: METOCLOPRAMIDE 10 MG/2 ML INJ IV SCH ×3 (11:02→22:12)
[2019-04-01] MEDS: INSULIN LISPRO 100 UNIT/ML SUB-Q SCH ×3 (11:02→22:10)
--- NOTE | 2019-04-01 11:24 | Progress Note ---
Assessment and Plan 29 y/o female, type 1 diabetic, admitted with DKA 1. Stop insulin drip 2. Long acting insulin 3. Scheduled reglan 4. If able to, feed, if not restart D5W without K replacement and continue long acting insulin. Likely would need sugars either q4 or q6 if not able to eat 5. Should be stable for transfer to the floor. Subjective Date of service: 04/01/19 Interval history: no acute events. Anion Gap has closed. Still wretching but has agreed to Reglan use. Objective Vital Signs - 12hr 04/01/19 04/01/19 04/01/19 00:00 04:00 08:00 Temperature 98.7 F 98.3 F 97.8 F Pulse Rate 121 H 115 H 111 H Pulse Rate [ 111 H Apical] Pulse Rate [ 111 H From Monitor] Respiratory 14 17 12 Rate O2 Sat by Pulse 100 100 100 Oximetry CBC and BMP: 03/31/19 07:09 04/01/19 04:34 Abnormal lab findings: Abnormal Labs 03/30/19 03/30/19 03/30/19 15:45 15:45 17:15 WBC 13.0 H Hgb MCH 25 L RDW 17.3 H [place] # 0.9 H Seg Neutrophils % 78.2 H Seg Neuts % (Manual) Lymphocytes % (Manual) Seg Neutrophils # 10.1 H Seg Neutrophils # Man Lymphocytes # (Manual) Sodium Potassium 3.5 L Chloride Carbon Dioxide 14 L BUN 18 H Creatinine Glucose POC Glucose Hemoglobin A1c Calcium Phosphorus Total Bilirubin 1.40 H Urine WBC (Auto) 12.0 H U Epithel Cells (Auto) 62.0 H 03/30/19 03/30/19 03/31/19 20:17 21:54 06:35 WBC Hgb MCH RDW [place] # Seg Neutrophils % Seg Neuts % (Manual) Lymphocytes % (Manual) Seg Neutrophils # Seg Neutrophils # Man Lymphocytes # (Manual) Sodium Potassium Chloride Carbon Dioxide BUN Creatinine Glucose POC Glucose 495 H > 500 H Hemoglobin A1c 9.1 H Calcium Phosphorus Total Bilirubin Urine WBC (Auto) U Epithel Cells (Auto) 03/31/19 03/31/19 03/31/19 07:09 07:09 07:41 WBC 13.6 H Hgb 9.4 L MCH 25 L RDW 18.0 H [place] # Seg Neutrophils % Seg Neuts % (Manual) 93.0 H Lymphocytes % (Manual) 6.0 L Seg Neutrophils # Seg Neutrophils # Man 12.6 H Lymphocytes # (Manual) 0.8 L Sodium Potassium 5.9 H D Chloride Carbon Dioxide 8 L* BUN 27 H Creatinine Glucose 681 H* POC Glucose > 500 H Hemoglobin A1c Calcium Phosphorus Total Bilirubin Urine WBC (Auto) U Epithel Cells (Auto) 03/31/19 03/31/19 03/31/19 12:46 13:55 14:40 WBC Hgb MCH RDW [place] # Seg Neutrophils % Seg Neuts % (Manual) Lymphocytes % (Manual) Seg Neutrophils # Seg Neutrophils # Man Lymphocytes # (Manual) Sodium 147 H Potassium Chloride 119.4 H Carbon Dioxide 12 L BUN 25 H Creatinine 1.3 H Glucose 324 H POC Glucose 483 H 481 H Hemoglobin A1c Calcium 7.7 L Phosphorus Total Bilirubin Urine WBC (Auto) U Epithel Cells (Auto) 03/31/19 03/31/19 03/31/19 14:57 15:53 16:56 WBC Hgb MCH RDW [place] # Seg Neutrophils % Seg Neuts % (Manual) Lymphocytes % (Manual) Seg Neutrophils # Seg Neutrophils # Man Lymphocytes # (Manual) Sodium Potassium Chloride Carbon Dioxide BUN Creatinine Glucose POC Glucose 351 H 247 H 213 H Hemoglobin A1c Calcium Phosphorus Total Bilirubin Urine WBC (Auto) U Epithel Cells (Auto) 03/31/19 03/31/19 03/31/19 18:04 18:39 19:55 WBC Hgb MCH RDW [place] # Seg Neutrophils % Seg Neuts % (Manual) Lymphocytes % (Manual) Seg Neutrophils # Seg Neutrophils # Man Lymphocytes # (Manual) Sodium Potassium Chloride Carbon Dioxide BUN Creatinine Glucose POC Glucose 191 H 212 H 139 H Hemoglobin A1c Calcium Phosphorus Total Bilirubin Urine WBC (Auto) U Epithel Cells (Auto) 03/31/19 03/31/19 03/31/19 20:36 21:18 22:16 WBC Hgb MCH RDW [place] # Seg Neutrophils % Seg Neuts % (Manual) Lymphocytes % (Manual) Seg Neutrophils # Seg Neutrophils # Man Lymphocytes # (Manual) Sodium Potassium Chloride Carbon Dioxide BUN Creatinine Glucose POC Glucose 163 H 163 H 195 H Hemoglobin A1c Calcium Phosphorus Total Bilirubin Urine WBC (Auto) U Epithel Cells (Auto) 03/31/19 03/31/19 04/01/19 22:49 23:13 01:04 WBC Hgb MCH RDW [place] # Seg Neutrophils % Seg Neuts % (Manual) Lymphocytes % (Manual) Seg Neutrophils # Seg Neutrophils # Man Lymphocytes # (Manual) Sodium 148 H Potassium Chloride 121.2 H Carbon Dioxide 14 L BUN Creatinine Glucose 202 H POC Glucose 205 H 225 H Hemoglobin A1c Calcium 8.1 L Phosphorus Total Bilirubin Urine WBC (Auto) U Epithel Cells (Auto) 04/01/19 04/01/19 04/01/19 01:42 02:54 03:42 WBC Hgb MCH RDW [place] # Seg Neutrophils % Seg Neuts % (Manual) Lymphocytes % (Manual) Seg Neutrophils # Seg Neutrophils # Man Lymphocytes # (Manual) Sodium Potassium Chloride Carbon Dioxide BUN Creatinine Glucose POC Glucose 240 H 222 H 190 H Hemoglobin A1c Calcium Phosphorus Total Bilirubin Urine WBC (Auto) U Epithel Cells (Auto) 04/01/19 04/01/19 04/01/19 04:34 04:42 06:03 WBC Hgb MCH RDW [place] # Seg Neutrophils % Seg Neuts % (Manual) Lymphocytes % (Manual) Seg Neutrophils # Seg Neutrophils # Man Lymphocytes # (Manual) Sodium Potassium 3.5 L D Chloride Carbon Dioxide 17 L BUN Creatinine Glucose 177 H POC Glucose 183 H 155 H Hemoglobin A1c Calcium Phosphorus 1.50 L D Total Bilirubin Urine WBC (Auto) U Epithel Cells (Auto) 04/01/19 04/01/19 04/01/19 06:40 07:48 08:48 WBC Hgb MCH RDW [place] # Seg Neutrophils % Seg Neuts % (Manual) Lymphocytes % (Manual) Seg Neutrophils # Seg Neutrophils # Man Lymphocytes # (Manual) Sodium Potassium Chloride Carbon Dioxide BUN Creatinine Glucose POC Glucose 155 H 128 H 160 H Hemoglobin A1c Calcium Phosphorus Total Bilirubin Urine WBC (Auto) U Epithel Cells (Auto)
[2019-04-01] MEDS: ALPRAZolam 0.25 MG TAB PO PRN (18:45)
[2019-04-01] MEDS: oxyCODONE /ACETAMINOPHEN 5-325MG TAB PO PRN (18:45)
[2019-04-02] MEDS: oxyCODONE /ACETAMINOPHEN 5-325MG TAB PO PRN ×3 (00:37→18:39)
[2019-04-02] MEDS: ONDANSETRON 4 MG/2 ML INJ IV PRN ×2 (04:45→13:14)
[2019-04-02] MEDS: INSULIN LISPRO 100 UNIT/ML SUB-Q SCH (08:00)
[2019-04-02] MEDS: METOCLOPRAMIDE 10 MG/2 ML INJ IV SCH ×4 (09:12→21:10)
[2019-04-02] MEDS ORDERED: INSULIN NPH/REGULAR 70/30 INJ SUB-Q SCH (09:30)
[2019-04-02] MEDS: HEPARIN 5,000 UNIT/1 ML VIAL SUB-Q SCH ×2 (10:00→21:10)
[2019-04-02 10:16] LABS: Blood Urea Nitrogen 17 mg/dL (7-17)
[2019-04-02 10:19] LABS: BUN/Creatinine Ratio 19; Calcium 9.3 mg/dL (8.4-10.2)
[2019-04-02 10:24] LABS: Hemolysis Index 37
[2019-04-02] MEDS ORDERED: SODIUM CHLORIDE 0.9% 1000 ML 1,000 ML IV ONE (11:00)
[2019-04-02] MEDS ORDERED: DEXTROSE 50% IN WATER (25GM) 50 ML SYRINGE IV PRN (11:59)
[2019-04-02] MEDS: SODIUM CHLORIDE 0.9% 1000 ML 1,000 ML IV SCH ×2 (12:00→13:10)
[2019-04-02] MEDS ORDERED: D5W/0.45% NACL/KCL 20 MEQ 20 MEQ/1,000 ML BAG IV SCH (12:00)
--- NOTE | 2019-04-02 12:13 | Progress Note ---
Assessment and Plan Assessment and plan: --Recurrent DKA : Blood sugars are >600 Elevated a-gap,severe acidosis and dehydration. Initiate DKA path way Patient was in ICU during this admission with DKA,resolved and transf to floor yesterday. Patient non compliant with meds,diet and treatment plan A1c 9.1 --Severe metabolic acidosis; secondary to DKA Significantly improved, continue IV hydration --Severe dehydration; encourage plenty fluids Vigorous IV hydration Input output monitoring --Gastroparesis; Patient allergic to Metoclopramide, The new Zofran ,Supportive care --Electrolyte abnormalities correct as needed --DVT prophylaxis; Lovenox Monitor closely and adjust the management as needed. Case management for discharge planning Home health for disease monitoring Caregiver to the patient, her nurse and case management Cr Care time 50 min History Interval history: Patient's blood sugars >600 Severely dehydrated Metabolic acidosis,elevated A-gap patient in acute distress. Vital signs reviewed - Hospitalist Physical - Constitutional Vitals: Temp Pulse Resp BP Pulse Ox 98.8 F 123 H 20 135/88 98 04/02/19 03:38 04/02/19 03:38 04/02/19 03:38 04/02/19 03:38 04/02/19 03:38 General appearance: Present: no acute distress, well-nourished - EENT Eyes: Present: PERRL, EOM intact - Neck Neck: Present: supple, normal ROM - Respiratory Respiratory effort: normal Respiratory: negative: rales, rhonchi, wheezing - Cardiovascular Rhythm: regular Heart Sounds: Present: S1 & S2 (tachycardia) - Extremities Extremities: no ischemia - Abdominal General gastrointestinal: soft, non-tender, non-distended, normal bowel sounds - Integumentary Integumentary: Present: clear, warm - Psychiatric Psychiatric: appropriate mood/affect, cooperative - Neurologic Neurologic: CNII-XII intact, moves all extremities Results - Labs CBC & Chem 7: 03/31/19 07:09 04/02/19 09:47 Labs: Laboratory Last Values WBC 13.6 K/mm3 (4.5-11.0) H 03/31/19 07:09 RBC 3.75 M/mm3 (3.65-5.03) 03/31/19 07:09 Hgb 9.4 gm/dl (10.1-14.3) L 03/31/19 07:09 Hct 31.3 % (30.3-42.9) 03/31/19 07:09 MCV 84 fl (79-97) 03/31/19 07:09 MCH 25 pg (28-32) L 03/31/19 07:09 MCHC 30 % (30-34) 03/31/19 07:09 RDW 18.0 % (13.2-15.2) H 03/31/19 07:09 Plt Count 348 K/mm3 (140-440) 03/31/19 07:09 Lymph % (Auto) 14.0 % (13.4-35.0) 03/30/19 15:45 [place] % (Auto) 7.0 % (0.0-7.3) 03/30/19 15:45 Eos % (Auto) 0.1 % (0.0-4.3) 03/30/19 15:45 Baso % (Auto) 0.7 % (0.0-1.8) 03/30/19 15:45 Lymph # 1.8 K/mm3 (1.2-5.4) 03/30/19 15:45 [place] # 0.9 K/mm3 (0.0-0.8) H 03/30/19 15:45 Eos # 0.0 K/mm3 (0.0-0.4) 03/30/19 15:45 Baso # 0.1 K/mm3 (0.0-0.1) 03/30/19 15:45 Add Manual Diff Complete 03/31/19 07:09 Total Counted 100 03/31/19 07:09 Seg Neutrophils % Continuous Conveyor Screen Drier 03/31/19 07:09 Seg Neuts % (Manual) 93.0 % (40.0-70.0) H 03/31/19 07:09 Band Neutrophils % 0 % 03/31/19 07:09 Lymphocytes % (Manual) 6.0 % (13.4-35.0) L 03/31/19 07:09 Reactive Lymphs % (Man) 0 % 03/31/19 07:09 Monocytes % (Manual) 1.0 % (0.0-7.3) 03/31/19 07:09 Eosinophils % (Manual) 0 % (0.0-4.3) 03/31/19 07:09 Basophils % (Manual) 0 % (0.0-1.8) 03/31/19 07:09 Metamyelocytes % 0 % 03/31/19 07:09 Myelocytes % 0 % 03/31/19 07:09 Promyelocytes % 0 % 03/31/19 07:09 Blast Cells % 0 % 03/31/19 07:09 Nucleated RBC % Not Reportable 03/31/19 07:09 Seg Neutrophils # 10.1 K/mm3 (1.8-7.7) H 03/30/19 15:45 Seg Neutrophils # Man 12.6 K/mm3 (1.8-7.7) H 03/31/19 07:09 Band Neutrophils # 0.0 K/mm3 03/31/19 07:09 Lymphocytes # (Manual) 0.8 K/mm3 (1.2-5.4) L 03/31/19 07:09 Abs React Lymphs (Man) 0.0 K/mm3 03/31/19 07:09 Monocytes # (Manual) 0.1 K/mm3 (0.0-0.8) 03/31/19 07:09 Eosinophils # (Manual) 0.0 K/mm3 (0.0-0.4) 03/31/19 07:09 Basophils # (Manual) 0.0 K/mm3 (0.0-0.1) 03/31/19 07:09 Metamyelocytes # 0.0 K/mm3 03/31/19 07:09 Myelocytes # 0.0 K/mm3 03/31/19 07:09 Promyelocytes # 0.0 K/mm3 03/31/19 07:09 Blast Cells # 0.0 K/mm3 03/31/19 07:09 WBC Morphology Not Reportable 03/31/19 07:09 Hypersegmented Neuts Not Reportable 03/31/19 07:09 Hyposegmented Neuts Not Reportable 03/31/19 07:09 Hypogranular Neuts Not Reportable 03/31/19 07:09 Smudge Cells Not Reportable 03/31/19 07:09 Toxic Granulation Not Reportable 03/31/19 07:09 Toxic Vacuolation Not Reportable 03/31/19 07:09 Dohle Bodies Not Reportable 03/31/19 07:09 Pelger-Huet Anomaly Not Reportable 03/31/19 07:09 Padmini Rods Not Reportable 03/31/19 07:09 Platelet Estimate Consistent w auto 03/31/19 07:09 Clumped Platelets Not Reportable 03/31/19 07:09 Plt Clumps, EDTA Not Reportable 03/31/19 07:09 Large Platelets Not Reportable 03/31/19 07:09 Giant Platelets Not Reportable 03/31/19 07:09 Platelet Satelliting Not Reportable 03/31/19 07:09 Plt Morphology Comment Not Reportable 03/31/19 07:09 RBC Morphology Not Reportable 03/31/19 07:09 Dimorphic RBCs Not Reportable 03/31/19 07:09 Polychromasia Not Reportable 03/31/19 07:09 Hypochromasia Few 03/31/19 07:09 Poikilocytosis Not Reportable 03/31/19 07:09 Anisocytosis Not Reportable 03/31/19 07:09 Microcytosis Not Reportable 03/31/19 07:09 Macrocytosis Not Reportable 03/31/19 07:09 Spherocytes Not Reportable 03/31/19 07:09 Pappenheimer Bodies Not Reportable 03/31/19 07:09 Sickle Cells Not Reportable 03/31/19 07:09 Target Cells Not Reportable 03/31/19 07:09 Tear Drop Cells Not Reportable 03/31/19 07:09 Ovalocytes Not Reportable 03/31/19 07:09 Helmet Cells Not Reportable 03/31/19 07:09 [place] Bodies Not Reportable 03/31/19 07:09 [place] Rings Not Reportable 03/31/19 07:09 [place] Cells Not Reportable 03/31/19 07:09 Bite Cells Not Reportable 03/31/19 07:09 Crenated Cell Not Reportable 03/31/19 07:09 Elliptocytes Few 03/31/19 07:09 Acanthocytes (Spur) Not Reportable 03/31/19 07:09 Rouleaux Not Reportable 03/31/19 07:09 Hemoglobin C Crystals Not Reportable 03/31/19 07:09 Schistocytes Not Reportable 03/31/19 07:09 Malaria parasites Not Reportable 03/31/19 07:09 [place] Bodies Not Reportable 03/31/19 07:09 Hem Pathologist Commnt No 03/31/19 07:09 VBG pH 7.340 (7.320-7.420) 03/30/19 17:52 Sodium 136 mmol/L (137-145) L 04/02/19 09:47 Potassium 5.2 mmol/L (3.6-5.0) H D 04/02/19 09:47 Chloride 96.5 mmol/L (98-107) L 04/02/19 09:47 Carbon Dioxide 4 mmol/L (22-30) L* D 04/02/19 09:47 Anion Gap 41 mmol/L 04/02/19 09:47 BUN 17 mg/dL (7-17) 04/02/19 09:47 Creatinine 0.9 mg/dL (0.7-1.2) 04/02/19 09:47 Estimated GFR > 60 ml/min 04/02/19 09:47 BUN/Creatinine Ratio 19 % 04/02/19 09:47 Glucose 644 mg/dL (65-100) H* 04/02/19 09:47 POC Glucose > 500 (70-105) H 04/02/19 08:36 Hemoglobin A1c 9.1 % (4-6) H 03/30/19 20:17 Ketones Quantitative Negative (Negative) 03/30/19 17:52 Calcium 9.3 mg/dL (8.4-10.2) 04/02/19 09:47 Phosphorus 4.60 mg/dL (2.5-4.5) H D 04/02/19 09:47 Magnesium 2.30 mg/dL (1.7-2.3) 04/02/19 09:47 Total Bilirubin 1.00 mg/dL (0.1-1.2) 03/31/19 07:09 AST 20 units/L (5-40) 03/31/19 07:09 ALT 21 units/L (7-56) 03/31/19 07:09 Alkaline Phosphatase 85 units/L (35-129) 03/31/19 07:09 Total Protein 7.5 g/dL (6.3-8.2) 03/31/19 07:09 Albumin 4.0 g/dL (3.9-5) 03/31/19 07:09 Albumin/Globulin Ratio 1.1 % 03/31/19 07:09 Lipase 16 units/L (13-60) 03/30/19 15:45 Urine Color Yellow (Yellow) 03/30/19 17:15 Urine Turbidity Cloudy (Clear) 03/30/19 17:15 Urine pH 5.0 (5.0-7.0) 03/30/19 17:15 Ur Specific [place] 1.021 (1.003-1.030) 03/30/19 17:15 Urine Protein 100 mg/dl mg/dL (Negative) 03/30/19 17:15 Urine Glucose (UA) >=500 mg/dL (Negative) 03/30/19 17:15 Urine Ketones 80 mg/dL (Negative) 03/30/19 17:15 Urine Blood Lg (Negative) 03/30/19 17:15 Urine Nitrite Neg (Negative) 03/30/19 17:15 Urine Bilirubin Neg (Negative) 03/30/19 17:15 Urine Urobilinogen < 2.0 mg/dL (<2.0) 03/30/19 17:15 Ur Leukocyte Esterase Tr (Negative) 03/30/19 17:15 Urine WBC (Auto) 12.0 /HPF (0.0-6.0) H 03/30/19 17:15 Urine RBC (Auto) 18.0 /HPF (0.0-6.0) 03/30/19 17:15 U Epithel Cells (Auto) 62.0 /HPF (0-13.0) H 03/30/19 17:15 Urine Bacteria (Auto) 4+ /HPF (Negative) 03/30/19 17:15 Urine Mucus Few /HPF 03/30/19 17:15 Urine HCG, Qual Negative (Negative) 03/30/19 17:15 Active Medications - Current Medications Current Medications: Generic Name Dose Route Start Last Admin Trade Name Freq PRN Reason Stop Dose Admin Acetaminophen 650 mg 03/30/19 20:16 Tylenol PO Q4H PRN Pain MILD(1-3)/Fever >100.5/AGUIRRE Alprazolam 0.25 mg 03/31/19 15:09 04/01/19 18:45 Xanax PO 0.25 mg Q8H PRN Administration Anxiety Dextrose 0 ml 03/31/19 12:38 D50w (25gm) Syringe IV Q30MIN PRN Hypoglycemia Protocol Dextrose 0 ml 04/02/19 11:59 D50w (25gm) Syringe IV Q30MIN PRN Hypoglycemia Protocol Heparin Sodium (Porcine) 5,000 unit 03/31/19 10:00 04/02/19 10:00 Heparin SUB-Q Not Given Q12HR WINIFRED Dextrose/Sodium Chloride 1,000 mls @ 100 mls/hr 04/01/19 11:00 04/01/19 10:58 D5/0.45ns IV 100 mls/hr DIRECT WINIFRED Administration Insulin Human Regular 100 100 mls @ 1 mls/hr 04/02/19 12:00 units/ Sodium Chloride IV TITR WINIFRED Protocol 1 UNITS/HR Potassium Chloride/Dextrose/Sod Cl 20 meq in 1,000 mls @ 125 mls/hr 04/02/19 12:00 D5w/0.45% Nacl/Kcl 20 Meq IV DIRECT WINIFRED Sodium Chloride 1,000 mls @ 0 mls/hr 04/02/19 12:15 Nacl 0.9% 1000 Ml IV 04/03/19 12:16 ONCE WINIFRED As Directed Insulin Human Isoph/Insulin Regular 12 unit 04/02/19 09:30 04/02/19 09:59 Humulin 70/30 SUB-Q 12 unit BIDDIAB WINIFRED Administration Insulin Human Lispro 0 unit 04/01/19 11:30 04/02/19 08:00 Humalog SUB-Q 8 unit ACHS WINIFRED Administration Protocol Lorazepam 0.5 mg 03/31/19 15:35 03/31/19 16:04 Ativan PO 0.5 mg Q6H PRN Administration Agitation Metoclopramide HCl 10 mg 04/01/19 11:30 04/02/19 09:12 Reglan IV Not Given ACHS [facility] Ondansetron HCl 4 mg 03/30/19 20:16 04/02/19 04:45 Zofran IV 4 mg Q3H PRN Administration Nausea And Vomiting Oxycodone/Acetaminophen 1 tab 04/01/19 18:00 04/02/19 00:37 Percocet 5/325 PO 1 tab Q6H PRN Administration Pain, Moderate (4-6) Promethazine HCl 25 mg 04/01/19 11:00 04/01/19 16:25 Phenergan MN 25 mg Q6H PRN Administration Nausea And Vomiting Sodium Chloride 10 ml 03/30/19 22:00 04/02/19 00:22 Sodium Chloride Flush Syringe 10 Ml IV 10 ml BID WINIFRED Administration Sodium Chloride 10 ml 03/30/19 20:16 Sodium Chloride Flush Syringe 10 Ml IV PRN PRN LINE FLUSH Nutrition/Malnutrition Assess - Dietary Evaluation Nutrition/Malnutrition Findings: Nutrition Notes Start: 04/01/19 12:35 Freq: Status: Active Protocol: Document 04/01/19 12:35 LM (Rec: 04/01/19 12:37 LM [id number]) Nutrition Notes Initial or Follow up Brief Note Current Diagnosis Diabetes Other Pertinent Diagnosis DKA Current Diet NPO Labs/Tests HgbA1C 9.1 Subjective/Other Information MD consult for diet education. Pt not feeling well at time of visit. Unable to give education/assess pt. Nutrition Intervention Follow-Up By: 04/02/19 Additional Comments F/U for DM diet education/ assessment
[2019-04-02] MEDS ORDERED: SODIUM CHLORIDE 0.9% 1000 ML 1,000 ML IV SCH (12:45)
[2019-04-02] MEDS: INSULIN REGULAR, HUMAN 100 UNITS in SODIUM CHLORIDE 0.9% 99 ML IV SCH (13:00)
[2019-04-02] MEDS: LORazepam 0.5 MG TAB PO PRN ×2 (13:07→18:39)
[2019-04-02] MEDS ORDERED: SODIUM CHLORIDE 0.9% 1000 ML 1,000 ML with SODIUM BICARBONATE 50 MEQ IV SCH (14:00)
[2019-04-02 14:17] LABS: BUN/Creatinine Ratio 17; Blood Urea Nitrogen 17 mg/dL (7-17); Calcium 8.4 mg/dL (8.4-10.2); Hemolysis Index 7
[2019-04-02 17:01] LABS: BUN/Creatinine Ratio 16; Blood Urea Nitrogen 16 mg/dL (7-17); Calcium 8.2 mg/dL (8.4-10.2); Hemolysis Index 12
[2019-04-02 20:42] LABS: BUN/Creatinine Ratio 14; Blood Urea Nitrogen 14 mg/dL (7-17); Calcium 8.2 mg/dL (8.4-10.2); Hemolysis Index 2
[2019-04-02] MEDS: D5W/0.45% NACL 1,000 ML IV SCH (21:16)
[2019-04-03 06:10] LABS: BUN/Creatinine Ratio 14; Blood Urea Nitrogen 13 mg/dL (7-17); Calcium 8.6 mg/dL (8.4-10.2); Hemolysis Index 17
[2019-04-03] MEDS: INSULIN REGULAR, HUMAN 100 UNITS in SODIUM CHLORIDE 0.9% 99 ML IV SCH ×3 (06:21→20:41)
[2019-04-03] MEDS ORDERED: SODIUM CHLORIDE 0.9% 1000 ML 1,000 ML IV ONE (09:00)
[2019-04-03] MEDS: METOCLOPRAMIDE 10 MG/2 ML INJ IV SCH ×4 (09:51→21:14)
[2019-04-03] MEDS: HEPARIN 5,000 UNIT/1 ML VIAL SUB-Q SCH ×2 (10:56→21:14)
[2019-04-03] MEDS: D5W IV SCH ×3 (11:33→23:56)
[2019-04-03] MEDS: SODIUM BICARBONATE IV SCH ×3 (11:33→23:56)
[2019-04-03] MEDS: NACL IV SCH ×3 (11:33→23:56)
[2019-04-03] MEDS: oxyCODONE /ACETAMINOPHEN 5-325MG TAB PO PRN (11:36)
--- NOTE | 2019-04-03 11:44 | Progress Note ---
Assessment and Plan Assessment and plan: --Recurrent DKA : Continue insulin drip,Elevated a-gap,severe acidosis and dehydration. Continue current management Per DKA protocol,A1c 9.1, n.p.o. ice chips Patient non compliant with meds,diet and treatment plan --Severe metabolic acidosis; secondary to DKA Sodium bicarb , IV hydration --Severe dehydration; encourage plenty fluids Vigorous IV hydration Input output monitoring --Gastroparesis; Patient allergic to Metoclopramide, on Zofran, Phenergan as needed, --Electrolyte abnormalities Hypokalemia, replace per protocol --DVT prophylaxis; Lovenox Plan of care reviewed with the patient and her nurse Cr Care time 33 min Disposition; possible discharge when medically stable History Interval history: Patient seen and examined this morning medical records reviewed Patient patient remains on insulin drip, anion gap still high Metabolic acidosis, patient is in mild distress Vital signs noted Hospitalist Physical - Constitutional Vitals: Temp Pulse Resp BP Pulse Ox 100.2 F H 118 H 13 150/96 100 04/03/19 04:00 04/03/19 09:30 04/03/19 09:30 04/03/19 09:30 04/03/19 09:30 General appearance: Present: mild distress, well-nourished - EENT Eyes: Present: PERRL, EOM intact - Neck Neck: Present: supple, normal ROM - Respiratory Respiratory effort: normal Respiratory: bilateral: diminished, negative: rales, rhonchi, wheezing - Cardiovascular Rhythm: regular Heart Sounds: Present: S1 & S2 - Extremities Extremities: no ischemia, No edema - Abdominal General gastrointestinal: soft, non-tender, non-distended, normal bowel sounds - Integumentary Integumentary: Present: clear, warm - Psychiatric Psychiatric: appropriate mood/affect, cooperative - Neurologic Neurologic: CNII-XII intact, moves all extremities Results - Labs CBC & Chem 7: 03/31/19 07:09 04/03/19 14:28 Labs: Laboratory Last Values WBC 13.6 K/mm3 (4.5-11.0) H 03/31/19 07:09 RBC 3.75 M/mm3 (3.65-5.03) 03/31/19 07:09 Hgb 9.4 gm/dl (10.1-14.3) L 03/31/19 07:09 Hct 31.3 % (30.3-42.9) 03/31/19 07:09 MCV 84 fl (79-97) 03/31/19 07:09 MCH 25 pg (28-32) L 03/31/19 07:09 MCHC 30 % (30-34) 03/31/19 07:09 RDW 18.0 % (13.2-15.2) H 03/31/19 07:09 Plt Count 348 K/mm3 (140-440) 03/31/19 07:09 Lymph % (Auto) 14.0 % (13.4-35.0) 03/30/19 15:45 [place] % (Auto) 7.0 % (0.0-7.3) 03/30/19 15:45 Eos % (Auto) 0.1 % (0.0-4.3) 03/30/19 15:45 Baso % (Auto) 0.7 % (0.0-1.8) 03/30/19 15:45 Lymph # 1.8 K/mm3 (1.2-5.4) 03/30/19 15:45 [place] # 0.9 K/mm3 (0.0-0.8) H 03/30/19 15:45 Eos # 0.0 K/mm3 (0.0-0.4) 03/30/19 15:45 Baso # 0.1 K/mm3 (0.0-0.1) 03/30/19 15:45 Add Manual Diff Complete 03/31/19 07:09 Total Counted 100 03/31/19 07:09 Seg Neutrophils % Operator Technician 03/31/19 07:09 Seg Neuts % (Manual) 93.0 % (40.0-70.0) H 03/31/19 07:09 Band Neutrophils % 0 % 03/31/19 07:09 Lymphocytes % (Manual) 6.0 % (13.4-35.0) L 03/31/19 07:09 Reactive Lymphs % (Man) 0 % 03/31/19 07:09 Monocytes % (Manual) 1.0 % (0.0-7.3) 03/31/19 07:09 Eosinophils % (Manual) 0 % (0.0-4.3) 03/31/19 07:09 Basophils % (Manual) 0 % (0.0-1.8) 03/31/19 07:09 Metamyelocytes % 0 % 03/31/19 07:09 Myelocytes % 0 % 03/31/19 07:09 Promyelocytes % 0 % 03/31/19 07:09 Blast Cells % 0 % 03/31/19 07:09 Nucleated RBC % Not Reportable 03/31/19 07:09 Seg Neutrophils # 10.1 K/mm3 (1.8-7.7) H 03/30/19 15:45 Seg Neutrophils # Man 12.6 K/mm3 (1.8-7.7) H 03/31/19 07:09 Band Neutrophils # 0.0 K/mm3 03/31/19 07:09 Lymphocytes # (Manual) 0.8 K/mm3 (1.2-5.4) L 03/31/19 07:09 Abs React Lymphs (Man) 0.0 K/mm3 03/31/19 07:09 Monocytes # (Manual) 0.1 K/mm3 (0.0-0.8) 03/31/19 07:09 Eosinophils # (Manual) 0.0 K/mm3 (0.0-0.4) 03/31/19 07:09 Basophils # (Manual) 0.0 K/mm3 (0.0-0.1) 03/31/19 07:09 Metamyelocytes # 0.0 K/mm3 03/31/19 07:09 Myelocytes # 0.0 K/mm3 03/31/19 07:09 Promyelocytes # 0.0 K/mm3 03/31/19 07:09 Blast Cells # 0.0 K/mm3 03/31/19 07:09 WBC Morphology Not Reportable 03/31/19 07:09 Hypersegmented Neuts Not Reportable 03/31/19 07:09 Hyposegmented Neuts Not Reportable 03/31/19 07:09 Hypogranular Neuts Not Reportable 03/31/19 07:09 Smudge Cells Not Reportable 03/31/19 07:09 Toxic Granulation Not Reportable 03/31/19 07:09 Toxic Vacuolation Not Reportable 03/31/19 07:09 Dohle Bodies Not Reportable 03/31/19 07:09 Pel[place] Anomaly Not Reportable 03/31/19 07:09 Padmini Rods Not Reportable 03/31/19 07:09 Platelet Estimate Consistent w auto 03/31/19 07:09 Clumped Platelets Not Reportable 03/31/19 07:09 Plt Clumps, EDTA Not Reportable 03/31/19 07:09 Large Platelets Not Reportable 03/31/19 07:09 Giant Platelets Not Reportable 03/31/19 07:09 Platelet Satelliting Not Reportable 03/31/19 07:09 Plt Morphology Comment Not Reportable 03/31/19 07:09 RBC Morphology Not Reportable 03/31/19 07:09 Dimorphic RBCs Not Reportable 03/31/19 07:09 Polychromasia Not Reportable 03/31/19 07:09 Hypochromasia Few 03/31/19 07:09 Poikilocytosis Not Reportable 03/31/19 07:09 Anisocytosis Not Reportable 03/31/19 07:09 Microcytosis Not Reportable 03/31/19 07:09 Macrocytosis Not Reportable 03/31/19 07:09 Spherocytes Not Reportable 03/31/19 07:09 Pappenheimer Bodies Not Reportable 03/31/19 07:09 Sickle Cells Not Reportable 03/31/19 07:09 Target Cells Not Reportable 03/31/19 07:09 Tear Drop Cells Not Reportable 03/31/19 07:09 Ovalocytes Not Reportable 03/31/19 07:09 Helmet Cells Not Reportable 03/31/19 07:09 [place] Bodies Not Reportable 03/31/19 07:09 [place] Rings Not Reportable 03/31/19 07:09 [place] Cells Not Reportable 03/31/19 07:09 Bite Cells Not Reportable 03/31/19 07:09 Crenated Cell Not Reportable 03/31/19 07:09 Elliptocytes Few 03/31/19 07:09 Acanthocytes (Spur) Not Reportable 03/31/19 07:09 Rouleaux Not Reportable 03/31/19 07:09 Hemoglobin C Crystals Not Reportable 03/31/19 07:09 Schistocytes Not Reportable 03/31/19 07:09 Malaria parasites Not Reportable 03/31/19 07:09 [place] Bodies Not Reportable 03/31/19 07:09 Hem Pathologist Commnt No 03/31/19 07:09 VBG pH 7.340 (7.320-7.420) 03/30/19 17:52 Sodium 144 mmol/L (137-145) 04/03/19 05:15 Potassium 4.1 mmol/L (3.6-5.0) 04/03/19 05:15 Chloride 113.1 mmol/L (98-107) H 04/03/19 05:15 Carbon Dioxide 8 mmol/L (22-30) L* D 04/03/19 05:15 Anion Gap 27 mmol/L 04/03/19 05:15 BUN 13 mg/dL (7-17) 04/03/19 05:15 Creatinine 0.9 mg/dL (0.7-1.2) 04/03/19 05:15 Estimated GFR > 60 ml/min 04/03/19 05:15 BUN/Creatinine Ratio 14 % 04/03/19 05:15 Glucose 357 mg/dL (65-100) H 04/03/19 05:15 POC Glucose 146 (70-105) H 04/03/19 11:04 Hemoglobin A1c 9.1 % (4-6) H 03/30/19 20:17 Ketones Quantitative Negative (Negative) 03/30/19 17:52 Calcium 8.6 mg/dL (8.4-10.2) 04/03/19 05:15 Phosphorus 2.60 mg/dL (2.5-4.5) D 04/02/19 13:40 Magnesium 2.00 mg/dL (1.7-2.3) 04/02/19 13:40 Total Bilirubin 1.00 mg/dL (0.1-1.2) 03/31/19 07:09 AST 20 units/L (5-40) 03/31/19 07:09 ALT 21 units/L (7-56) 03/31/19 07:09 Alkaline Phosphatase 85 units/L (35-129) 03/31/19 07:09 Total Protein 7.5 g/dL (6.3-8.2) 03/31/19 07:09 Albumin 4.0 g/dL (3.9-5) 03/31/19 07:09 Albumin/Globulin Ratio 1.1 % 03/31/19 07:09 Lipase 16 units/L (13-60) 03/30/19 15:45 Urine Color Yellow (Yellow) 03/30/19 17:15 Urine Turbidity Cloudy (Clear) 03/30/19 17:15 Urine pH 5.0 (5.0-7.0) 03/30/19 17:15 Ur Specific [place] 1.021 (1.003-1.030) 03/30/19 17:15 Urine Protein 100 mg/dl mg/dL (Negative) 03/30/19 17:15 Urine Glucose (UA) >=500 mg/dL (Negative) 03/30/19 17:15 Urine Ketones 80 mg/dL (Negative) 03/30/19 17:15 Urine Blood Lg (Negative) 03/30/19 17:15 Urine Nitrite Neg (Negative) 03/30/19 17:15 Urine Bilirubin Neg (Negative) 03/30/19 17:15 Urine Urobilinogen < 2.0 mg/dL (<2.0) 03/30/19 17:15 Ur Leukocyte Esterase Tr (Negative) 03/30/19 17:15 Urine WBC (Auto) 12.0 /HPF (0.0-6.0) H 03/30/19 17:15 Urine RBC (Auto) 18.0 /HPF (0.0-6.0) 03/30/19 17:15 U Epithel Cells (Auto) 62.0 /HPF (0-13.0) H 03/30/19 17:15 Urine Bacteria (Auto) 4+ /HPF (Negative) 03/30/19 17:15 Urine Mucus Few /HPF 03/30/19 17:15 Urine HCG, Qual Negative (Negative) 03/30/19 17:15 Active Medications - Current Medications Current Medications: Generic Name Dose Route Start Last Admin Trade Name Freq PRN Reason Stop Dose Admin Acetaminophen 650 mg 03/30/19 20:16 Tylenol PO Q4H PRN Pain MILD(1-3)/Fever >100.5/AGUIRRE Alprazolam 0.25 mg 03/31/19 15:09 04/01/19 18:45 Xanax PO 0.25 mg Q8H PRN Administration Anxiety Dextrose 0 ml 04/02/19 11:59 D50w (25gm) Syringe IV Q30MIN PRN Hypoglycemia Protocol Heparin Sodium (Porcine) 5,000 unit 03/31/19 10:00 04/03/19 10:56 Heparin SUB-Q Not Given Q12HR WINIFRED Insulin Human Regular 100 100 mls @ 1 mls/hr 04/02/19 13:00 04/03/19 10:55 units/ Sodium Chloride IV 3 units/hr TITR WINIFRED 3 mls/hr Titration Protocol 1 UNITS/HR Sodium Bicarbonate 50 meq/ 1,050 mls @ 150 mls/hr 04/03/19 11:00 04/03/19 11:33 Dextrose/Sodium Chloride IV 150 mls/hr DIRECT WINIFRED Administration Lorazepam 0.5 mg 03/31/19 15:35 04/02/19 18:39 Ativan PO 0.5 mg Q6H PRN Administration Agitation Metoclopramide HCl 10 mg 04/01/19 11:30 04/03/19 09:51 Reglan IV Not Given ACHS WINIFRED Ondansetron HCl 4 mg 03/30/19 20:16 04/02/19 13:14 Zofran IV 4 mg Q3H PRN Administration Nausea And Vomiting Oxycodone/Acetaminophen 1 tab 04/01/19 18:00 04/03/19 11:36 Percocet 5/325 PO 1 tab Q6H PRN Administration Pain, Moderate (4-6) Promethazine HCl 25 mg 04/01/19 11:00 04/01/19 16:25 Phenergan MN 25 mg Q6H PRN Administration Nausea And Vomiting Sodium Chloride 10 ml 03/30/19 22:00 04/03/19 10:58 Sodium Chloride Flush Syringe 10 Ml IV 10 ml BID WINIFRED Administration Sodium Chloride 10 ml 03/30/19 20:16 Sodium Chloride Flush Syringe 10 Ml IV PRN PRN LINE FLUSH Nutrition/Malnutrition Assess - Dietary Evaluation Nutrition/Malnutrition Findings: Nutrition Notes Start: 04/01/19 12 :35 Freq: Status: Active Protocol: Document 04/02/19 13:14 ROSALES (Rec: 04/02/19 13:15 ROSALES [id number]) Nutrition Notes Initial or Follow up Brief Note Subjective/Other Information Pt f/u for DM education and nutrition assessment. Pt asleep or with nursing staff during all 3 attempted visits Nutrition Intervention Follow-Up By: 04/03/19 Additional Comments F/u for DM education/ nutrition assessment
[2019-04-03] MEDS ORDERED: diphenhydrAMINE 25 MG CAP PO PRN (12:04)
[2019-04-03 15:00] LABS: BUN/Creatinine Ratio 11; Blood Urea Nitrogen 9 mg/dL (7-17); Calcium 8.4 mg/dL (8.4-10.2); Hemolysis Index 29
[2019-04-03] MEDS: ONDANSETRON 4 MG/2 ML INJ IV PRN (17:11)
[2019-04-03] MEDS ORDERED: POTASSIUM CHLORIDE ER 20 MEQ TAB PO ONE (18:12)
[2019-04-03] MEDS: ALPRAZolam 0.25 MG TAB PO PRN (21:12)
[2019-04-04] MEDS: METOCLOPRAMIDE 10 MG/2 ML INJ IV SCH ×4 (07:30→21:48)
[2019-04-04 08:16] LABS: BUN/Creatinine Ratio 7; Blood Urea Nitrogen 5 mg/dL (7-17); Calcium 8.8 mg/dL (8.4-10.2); Hemolysis Index 17
[2019-04-04] MEDS: oxyCODONE /ACETAMINOPHEN 5-325MG TAB PO PRN ×2 (08:50→17:59)
[2019-04-04] MEDS ORDERED: POTASSIUM CHLORIDE ER 20 MEQ TAB PO SCH (09:00)
[2019-04-04] MEDS ORDERED: POTASSIUM CHLORIDE 10 MEQ 10 MEQ/100 ML BAG IV SCH (09:00)
[2019-04-04] MEDS ORDERED: POTASSIUM CHLORIDE ER 20 MEQ TAB PO ONE (09:00)
[2019-04-04] MEDS ORDERED: ALUM-MAG HYDROXIDE-SIMETHICONE 200-200-20MG/5ML ORAL LIQD 30 ML PO PRN (09:20)
[2019-04-04] MEDS ORDERED: POTASSIUM PHOSPHATE 40 MMOL in SODIUM CHLORIDE 0.9% 500 ML 500 ML IV ONE (09:30)
--- NOTE | 2019-04-04 09:38 | Progress Note ---
Assessment and Plan Assessment and plan: --Recurrent DKA : dc insulin drip,ADA diet.long acting insulin Patient non compliant with meds,diet and treatment plan monitor blood sugars, DM education,Diet education --Hypokalemia/hypophosphatemia replenish per protocol --Severe metabolic acidosis; improved --Severe dehydration; encourage plenty fluids Vigorous IV hydration Input output monitoring --Gastroparesis; Patient allergic to Metoclopramide, on Zofran, Phenergan as needed, --Medical non compliance --DVT prophylaxis; Lovenox may transfer to floor in 1-2 hrs if stable Disposition; possible discharge when medically stable Cr Care time 32 min History Interval history: Patient seen and examined,medical records reviewed Patient is on insulin drip. Blood sugars reasonable,a gap corrected Acidosis improved. Patient in mild distress Vitals reviewed Hospitalist Physical - Constitutional Vitals: Temp Pulse Resp BP Pulse Ox 98.0 F 115 H 11 L 123/93 100 04/04/19 03:00 04/04/19 09:00 04/04/19 09:00 04/04/19 09:00 04/04/19 05:30 General appearance: Present: mild distress, well-nourished - EENT Eyes: Present: PERRL, EOM intact - Neck Neck: Present: supple, normal ROM - Respiratory Respiratory effort: normal Respiratory: bilateral: diminished, negative: rales, rhonchi, wheezing - Cardiovascular Rhythm: regular Heart Sounds: Present: S1 & S2 - Extremities Extremities: no ischemia, No edema - Abdominal General gastrointestinal: soft, non-tender, non-distended, normal bowel sounds - Integumentary Integumentary: Present: clear, warm - Psychiatric Psychiatric: appropriate mood/affect, cooperative - Neurologic Neurologic: CNII-XII intact, moves all extremities Results - Labs CBC & Chem 7: 03/31/19 07:09 04/04/19 07:48 Labs: Laboratory Last Values WBC 13.6 K/mm3 (4.5-11.0) H 03/31/19 07:09 RBC 3.75 M/mm3 (3.65-5.03) 03/31/19 07:09 Hgb 9.4 gm/dl (10.1-14.3) L 03/31/19 07:09 Hct 31.3 % (30.3-42.9) 03/31/19 07:09 MCV 84 fl (79-97) 03/31/19 07:09 MCH 25 pg (28-32) L 03/31/19 07:09 MCHC 30 % (30-34) 03/31/19 07:09 RDW 18.0 % (13.2-15.2) H 03/31/19 07:09 Plt Count 348 K/mm3 (140-440) 03/31/19 07:09 Lymph % (Auto) 14.0 % (13.4-35.0) 03/30/19 15:45 [place] % (Auto) 7.0 % (0.0-7.3) 03/30/19 15:45 Eos % (Auto) 0.1 % (0.0-4.3) 03/30/19 15:45 Baso % (Auto) 0.7 % (0.0-1.8) 03/30/19 15:45 Lymph # 1.8 K/mm3 (1.2-5.4) 03/30/19 15:45 [place] # 0.9 K/mm3 (0.0-0.8) H 03/30/19 15:45 Eos # 0.0 K/mm3 (0.0-0.4) 03/30/19 15:45 Baso # 0.1 K/mm3 (0.0-0.1) 03/30/19 15:45 Add Manual Diff Complete 03/31/19 07:09 Total Counted 100 03/31/19 07:09 Seg Neutrophils % [place] 03/31/19 07:09 Seg Neuts % (Manual) 93.0 % (40.0-70.0) H 03/31/19 07:09 Band Neutrophils % 0 % 03/31/19 07:09 Lymphocytes % (Manual) 6.0 % (13.4-35.0) L 03/31/19 07:09 Reactive Lymphs % (Man) 0 % 03/31/19 07:09 Monocytes % (Manual) 1.0 % (0.0-7.3) 03/31/19 07:09 Eosinophils % (Manual) 0 % (0.0-4.3) 03/31/19 07:09 Basophils % (Manual) 0 % (0.0-1.8) 03/31/19 07:09 Metamyelocytes % 0 % 03/31/19 07:09 Myelocytes % 0 % 03/31/19 07:09 Promyelocytes % 0 % 03/31/19 07:09 Blast Cells % 0 % 03/31/19 07:09 Nucleated RBC % Not Reportable 03/31/19 07:09 Seg Neutrophils # 10.1 K/mm3 (1.8-7.7) H 03/30/19 15:45 Seg Neutrophils # Man 12.6 K/mm3 (1.8-7.7) H 03/31/19 07:09 Band Neutrophils # 0.0 K/mm3 03/31/19 07:09 Lymphocytes # (Manual) 0.8 K/mm3 (1.2-5.4) L 03/31/19 07:09 Abs React Lymphs (Man) 0.0 K/mm3 03/31/19 07:09 Monocytes # (Manual) 0.1 K/mm3 (0.0-0.8) 03/31/19 07:09 Eosinophils # (Manual) 0.0 K/mm3 (0.0-0.4) 03/31/19 07:09 Basophils # (Manual) 0.0 K/mm3 (0.0-0.1) 03/31/19 07:09 Metamyelocytes # 0.0 K/mm3 03/31/19 07:09 Myelocytes # 0.0 K/mm3 03/31/19 07:09 Promyelocytes # 0.0 K/mm3 03/31/19 07:09 Blast Cells # 0.0 K/mm3 03/31/19 07:09 WBC Morphology Not Reportable 03/31/19 07:09 Hypersegmented Neuts Not Reportable 03/31/19 07:09 Hyposegmented Neuts Not Reportable 03/31/19 07:09 Hypogranular Neuts Not Reportable 03/31/19 07:09 Smudge Cells Not Reportable 03/31/19 07:09 Toxic Granulation Not Reportable 03/31/19 07:09 Toxic Vacuolation Not Reportable 03/31/19 07:09 Dohle Bodies Not Reportable 03/31/19 07:09 Pelger-Huet Anomaly Not Reportable 03/31/19 07:09 Padmini Rods Not Reportable 03/31/19 07:09 Platelet Estimate Consistent w auto 03/31/19 07:09 Clumped Platelets Not Reportable 03/31/19 07:09 Plt Clumps, EDTA Not Reportable 03/31/19 07:09 Large Platelets Not Reportable 03/31/19 07:09 Giant Platelets Not Reportable 03/31/19 07:09 Platelet Satelliting Not Reportable 03/31/19 07:09 Plt Morphology Comment Not Reportable 03/31/19 07:09 RBC Morphology Not Reportable 03/31/19 07:09 Dimorphic RBCs Not Reportable 03/31/19 07:09 Polychromasia Not Reportable 03/31/19 07:09 Hypochromasia Few 03/31/19 07:09 Poikilocytosis Not Reportable 03/31/19 07:09 Anisocytosis Not Reportable 03/31/19 07:09 Microcytosis Not Reportable 03/31/19 07:09 Macrocytosis Not Reportable 03/31/19 07:09 Spherocytes Not Reportable 03/31/19 07:09 Pappenheimer Bodies Not Reportable 03/31/19 07:09 Sickle Cells Not Reportable 03/31/19 07:09 Target Cells Not Reportable 03/31/19 07:09 Tear Drop Cells Not Reportable 03/31/19 07:09 Ovalocytes Not Reportable 03/31/19 07:09 Helmet Cells Not Reportable 03/31/19 07:09 Gonzalez-Ducor Bodies Not Reportable 03/31/19 07:09 [place] Rings Not Reportable 03/31/19 07:09 Jaime Cells Not Reportable 03/31/19 07:09 Bite Cells Not Reportable 03/31/19 07:09 Crenated Cell Not Reportable 03/31/19 07:09 Elliptocytes Few 03/31/19 07:09 Acanthocytes (Spur) Not Reportable 03/31/19 07:09 Rouleaux Not Reportable 03/31/19 07:09 Hemoglobin C Crystals Not Reportable 03/31/19 07:09 Schistocytes Not Reportable 03/31/19 07:09 Malaria parasites Not Reportable 03/31/19 07:09 Gonzalez Bodies Not Reportable 03/31/19 07:09 Hem Pathologist Commnt No 03/31/19 07:09 VBG pH 7.340 (7.320-7.420) 03/30/19 17:52 Sodium 138 mmol/L (137-145) 04/04/19 07:48 Potassium 2.7 mmol/L (3.6-5.0) L* 04/04/19 07:48 Chloride 102.0 mmol/L (98-107) 04/04/19 07:48 Carbon Dioxide 21 mmol/L (22-30) L 04/04/19 07:48 Anion Gap 18 mmol/L 04/04/19 07:48 BUN 5 mg/dL (7-17) L 04/04/19 07:48 Creatinine 0.7 mg/dL (0.7-1.2) 04/04/19 07:48 Estimated GFR > 60 ml/min 04/04/19 07:48 BUN/Creatinine Ratio 7 % 04/04/19 07:48 Glucose 108 mg/dL (65-100) H 04/04/19 07:48 POC Glucose 155 (70-105) H 04/04/19 08:52 Hemoglobin A1c 9.1 % (4-6) H 03/30/19 20:17 Ketones Quantitative Negative (Negative) 03/30/19 17:52 Calcium 8.8 mg/dL (8.4-10.2) 04/04/19 07:48 Phosphorus 0.90 mg/dL (2.5-4.5) L* D 04/04/19 07:48 Magnesium 1.70 mg/dL (1.7-2.3) 04/04/19 07:48 Total Bilirubin 1.00 mg/dL (0.1-1.2) 03/31/19 07:09 AST 20 units/L (5-40) 03/31/19 07:09 ALT 21 units/L (7-56) 03/31/19 07:09 Alkaline Phosphatase 85 units/L (35-129) 03/31/19 07:09 Total Protein 7.5 g/dL (6.3-8.2) 03/31/19 07:09 Albumin 4.0 g/dL (3.9-5) 03/31/19 07:09 Albumin/Globulin Ratio 1.1 % 03/31/19 07:09 Lipase 16 units/L (13-60) 03/30/19 15:45 Urine Color Yellow (Yellow) 03/30/19 17:15 Urine Turbidity Cloudy (Clear) 03/30/19 17:15 Urine pH 5.0 (5.0-7.0) 03/30/19 17:15 Ur Specific [place] 1.021 (1.003-1.030) 03/30/19 17:15 Urine Protein 100 mg/dl mg/dL (Negative) 03/30/19 17:15 Urine Glucose (UA) >=500 mg/dL (Negative) 03/30/19 17:15 Urine Ketones 80 mg/dL (Negative) 03/30/19 17:15 Urine Blood Lg (Negative) 03/30/19 17:15 Urine Nitrite Neg (Negative) 03/30/19 17:15 Urine Bilirubin Neg (Negative) 03/30/19 17:15 Urine Urobilinogen < 2.0 mg/dL (<2.0) 03/30/19 17:15 Ur Leukocyte Esterase Tr (Negative) 03/30/19 17:15 Urine WBC (Auto) 12.0 /HPF (0.0-6.0) H 03/30/19 17:15 Urine RBC (Auto) 18.0 /HPF (0.0-6.0) 03/30/19 17:15 U Epithel Cells (Auto) 62.0 /HPF (0-13.0) H 03/30/19 17:15 Urine Bacteria (Auto) 4+ /HPF (Negative) 03/30/19 17:15 Urine Mucus Few /HPF 03/30/19 17:15 Urine HCG, Qual Negative (Negative) 03/30/19 17:15 Active Medications - Current Medications Current Medications: Generic Name Dose Route Start Last Admin Trade Name Freq PRN Reason Stop Dose Admin Acetaminophen 650 mg 03/30/19 20:16 Tylenol PO Q4H PRN Pain MILD(1-3)/Fever >100.5/AGUIRRE Al Hydrox/Mg Hydrox/Simethicone 30 ml 04/04/19 09:20 Alum-Mag Hydrox-Simeth 825-305-22ty/5ml PO Q4H PRN Indigestion Al Hydrox/Mg Hydrox/Simethicone 30 ml 04/04/19 10:00 Alum-Mag Hydrox-Simeth 446-752-97xz/5ml PO 04/04/19 10:01 ONCE ONE Alprazolam 0.25 mg 03/31/19 15:09 12/11/19 21:12 Xanax PO 0.25 mg Q8H PRN Administration Anxiety Dextrose 0 ml 04/02/19 11:59 D50w (25gm) Syringe IV Q30MIN PRN Hypoglycemia Protocol Diphenhydramine HCl 25 mg 04/03/19 12:04 Benadryl PO Q6H PRN Itching Heparin Sodium (Porcine) 5,000 unit 03/31/19 10:00 04/03/19 21:14 Heparin SUB-Q Not Given Q12HR WINIFRED Hydromorphone HCl 0.5 mg 04/04/19 10:00 Dilaudid IV 04/04/19 10:01 ONCE ONE Sodium Bicarbonate 50 meq/ 1,050 mls @ 150 mls/hr 04/03/19 11:00 04/03/19 23:56 Dextrose/Sodium Chloride IV 150 mls/hr DIRECT WINIFRED Administration Potassium Phosphate 40 mmol/ 513.3333 mls @ 83 mls/hr 04/04/19 09:30 Sodium Chloride IV 04/04/19 15:41 ONCE ONE Insulin Human Isoph/Insulin Regular 8 unit 04/04/19 17:00 Humulin 70/30 SUB-Q BIDDIAB WINIFRED Lorazepam 0.5 mg 03/31/19 15:35 04/02/19 18:39 Ativan PO 0.5 mg Q6H PRN Administration Agitation Metoclopramide HCl 10 mg 04/01/19 11:30 04/03/19 21:14 Reglan IV 10 mg ACHS WINIFRED Administration Ondansetron HCl 4 mg 03/30/19 20:16 04/03/19 17:11 Zofran IV 4 mg Q3H PRN Administration Nausea And Vomiting Oxycodone/Acetaminophen 1 tab 04/01/19 18:00 04/04/19 08:50 Percocet 5/325 PO 1 tab Q6H PRN Administration Pain, Moderate (4-6) Promethazine HCl 25 mg 04/01/19 11:00 04/01/19 16:25 Phenergan [place] 25 mg Q6H PRN Administration Nausea And Vomiting Sodium Chloride 10 ml 03/30/19 22:00 04/03/19 21:15 Sodium Chloride Flush Syringe 10 Ml IV 10 ml BID WINIFRED Administration Sodium Chloride 10 ml 03/30/19 20:16 Sodium Chloride Flush Syringe 10 Ml IV PRN PRN LINE FLUSH Nutrition/Malnutrition Assess - Dietary Evaluation Nutrition/Malnutrition Findings: Nutrition Notes Start: 04/01/19 12:35 Freq: Status: Active Protocol: Document 04/03/19 12:16 DW (Rec: 04/03/19 12:17 DW [id number]) Co-Sign 04/03/19 12:16 LP Nutrition Notes Initial or Follow up Brief Note Current Diagnosis Diabetes Other Pertinent Diagnosis DKA Current Diet NPO Subjective/Other Information FU education/assessment Upon arrival pt was shaking and unable to communicate Nutrition Intervention Follow-Up By: 04/04/19 Additional Comments FU for Dm education/nutrition assessment
[2019-04-04] MEDS ORDERED: HYDROmorphone 1 MG/1 ML INJ IV ONE (10:00)
[2019-04-04] MEDS ORDERED: ALUM-MAG HYDROXIDE-SIMETHICONE 200-200-20MG/5ML ORAL LIQD 30 ML PO ONE (10:00)
[2019-04-04] MEDS ORDERED: INSULIN NPH/REGULAR 70/30 INJ SUB-Q ONE ×2 (10:00→13:00)
[2019-04-04] MEDS: HEPARIN 5,000 UNIT/1 ML VIAL SUB-Q SCH ×3 (10:23→21:48)
[2019-04-04] MEDS: INSULIN LISPRO 100 UNIT/ML SUB-Q SCH ×3 (10:59→22:16)
[2019-04-04] MEDS ORDERED: INSULIN NPH/REGULAR 70/30 INJ SUB-Q SCH (11:30)
[2019-04-04] MEDS: D5W/0.45% NACL 1,000 ML IV SCH (14:45)
[2019-04-04] MEDS: INSULIN NPH/REGULAR 70/30 INJ SUB-Q SCH (17:00)
[2019-04-05 05:00] LABS: BUN/Creatinine Ratio 7; Blood Urea Nitrogen 5 mg/dL (7-17); Calcium 7.4 mg/dL (8.4-10.2); Hemolysis Index 21
[2019-04-05] MEDS: D5W/0.45% NACL 1,000 ML IV SCH (06:03)
[2019-04-05] MEDS: INSULIN LISPRO 100 UNIT/ML SUB-Q SCH ×2 (08:34→13:05)
[2019-04-05] MEDS: INSULIN NPH/REGULAR 70/30 INJ SUB-Q SCH (08:35)
[2019-04-05] MEDS: METOCLOPRAMIDE 10 MG/2 ML INJ IV SCH ×2 (08:36→12:07)
[2019-04-05] MEDS ORDERED: POTASSIUM CHLORIDE ER 20 MEQ TAB PO NR (08:48)
[2019-04-05] MEDS: HEPARIN 5,000 UNIT/1 ML VIAL SUB-Q SCH (10:39)
[2019-04-05] MEDS ORDERED: SODIUM CHLORIDE 0.9% 1000 ML 1,000 ML IV SCH (11:30)
[2019-04-05] MEDS ORDERED: POTASSIUM CHLORIDE ER 20 MEQ TAB PO ONE (11:32)
[2019-04-05] MEDS ORDERED: MAGNESIUM SULFATE 2 GM/50 ML BAG IV ONE (11:49)
[2019-04-05] MEDS ORDERED: INSULIN NPH/REGULAR 70/30 INJ SUB-Q SCH (12:33)
--- NOTE | 2019-04-05 12:36 | Discharge Summary ---
Providers - Providers Date of Admission: 03/30/19 17:26 Date of discharge: 04/05/19 Attending physician: PAIGE MCFARLAND 03/31/19 09:55 Consult to Case Management [CONS] Routine Services Needed at Discharge: Home Health Services Notified:: copy given to 03/31/19 12:38 Consult to Dietitian/Nutrition [CONS] Routine Physician Instructions: Reason For Exam: DKA Reason for Consult: Nutrition Recommendations Reason for Consult: Diet education 04/02/19 12:53 Consult to Physician [CONS] Routine Comment: Consulting Provider: NIGEL WILLIS Physician Instructions: Reason For Exam: critical care management Primary care physician: CROSSING TENDER Hospitalization Reason for admission: Recurrent DKA Condition: Stable Hospital course: 29 yo female with hx of type 1 diabetes since age 7 and diabetic gastroparesis who presents with abdominal pain nausea and vomiting for the past one day. She has severe diffuse abdominal pain 10 on a 10 crampy sharp in nature. Gradual onset. She explains that morphine normally improves her pain. No radiation of the pain. She has follow-up with a new GI physician later this month. she receives primary care at the [facility]. Discharge Diagnosis: --Recurrent DKA : dc insulin drip,ADA diet.long acting insulin Patient non compliant with meds,diet and treatment plan monitor blood sugars, DM education,Diet education --Hypokalemia/hypophosphatemia replenish per protocol --Severe metabolic acidosis; improved --Severe dehydration; encourage plenty fluids Vigorous IV hydration Input output monitoring --Gastroparesis; Patient allergic to Metoclopramide, on Zofran, Phenergan as needed, --Medical non compliance --DVT prophylaxis; Lovenox Stable at discharge Disposition: DC-01 TO HOME OR SELFCARE Time spent for discharge: 32 min Core Measure Documentation - Palliative Care Palliative Care/ Comfort Measures: Not Applicable - Core Measures Any of the following diagnoses?: none Exam - Constitutional Vitals: Temp Pulse Resp BP Pulse Ox 98.8 F 91 H 20 131/76 100 04/05/19 06:57 04/05/19 06:57 04/05/19 06:57 04/05/19 06:57 04/05/19 06:57 General appearance: Present: no acute distress, well-nourished - EENT Eyes: Present: PERRL, EOM intact - Neck Neck: Present: supple, normal ROM - Respiratory Respiratory effort: normal Respiratory: negative: diminished, rales, rhonchi, wheezing - Cardiovascular Rhythm: regular Heart Sounds: Present: S1 & S2 - Extremities Extremities: no ischemia, No edema - Abdominal General gastrointestinal: Present: soft, non-tender, non-distended, normal bowel sounds - Integumentary Integumentary: Present: clear, warm - Musculoskeletal Musculoskeletal: strength equal bilaterally - Psychiatric Psychiatric: appropriate mood/affect, cooperative - Neurologic Neurologic: CNII-XII intact, moves all extremities Plan Activity: no restrictions Diet: diabetic Additional Instructions: Advised to be compliant and with medications diet and follow-up visits. Advised to see private barrel cap setter in 1-2 weeks for better management of diabetes mellitus. Continue Insulin Novolin 70/30, 20 units s/c p.m.[evening]. Novolin 7030 30 units sc a.m.[morning] Follow up with: PRIMARY CARE, [Primary Care Provider] - 7 Days Prescriptions: Magnesium Oxide [Mag-Ox] 400 mg PO QDAY #5 tablet oxyCODONE /ACETAMINOPHEN [Percocet 5/325 mg] 1 tab PO BID PRN #6 tablet PRN Reason: Pain, Moderate (4-6) Ondansetron [Zofran Odt] 4 mg PO Q8HR #15 tab.senia
[2019-04-05] MEDS ORDERED: MAGNESIUM OXIDE 400 MG TAB PO SCH (13:00)
[2019-04-05 14:39] VITALS: BP 142/97
== END 2019-04-05 14:45 | disposition home or self-care (01) | DRG 638 ==
LOC: ED 15:01 → 3A 17:26 → CC1 03-31 11:20 → 3A 04-01 15:59 → CC1 04-02 12:39 → 3A 04-04 13:35
PROVIDERS: ADMIT Internal Medicine; ATTEND Internal Medicine
DX: E10.10 Type 1 diabetes mellitus with ketoacidosis without coma (principal); Z68.41 Body mass index [BMI] 40.0-44.9, adult; E10.43 Type 1 diabetes mellitus with diabetic autonomic (poly)neuropathy; E87.6 Hypokalemia; E86.0 Dehydration; K31.84 Gastroparesis; K21.9 Gastro-esophageal reflux disease without esophagitis; F41.9 Anxiety disorder, unspecified; E87.5 Hyperkalemia; E66.9 Obesity, unspecified; E83.39 Other disorders of phosphorus metabolism; Z79.899 Other long term (current) drug therapy; Z82.49 Family history of ischemic heart disease and other diseases of the circulatory system; Z79.4 Long term (current) use of insulin; Z88.8 Allergy status to other drugs, medicaments and biological substances; Z91.14 Patient's other noncompliance with medication regimen
CPT/HCPCS: 36415; 80048; 80053; 81001; 81025; 82010; 82805; 82962; 83036; 83690; 83735; 84100; 85007; 85025; 87086; 87116; 96361; 96374; 96375; G0378; J1170; J1644; J1815; J2060; J2270; J2405; J2765; J3475; J3480; J7030; J7040

== ENCOUNTER 2019-12-31 13:44 | Observation (INO) | payer OTHER ==
[2019-12-31 14:23] LABS: Basophils # (Auto) 0.1 K/mm3 (0.0-0.1); Basophils % (Auto) 0.5 % (0.0-1.8); Eosinophils # (Auto) 0.1 K/mm3 (0.0-0.4); Eosinophils % (Auto) 0.5 % (0.0-4.3); Hematocrit 33.1 % (30.3-42.9); Hemoglobin 10.7 gm/dl (10.1-14.3); Lymphocytes # (Auto) 2.2 K/mm3 (1.2-5.4); Lymphocytes % (Auto) 20.3 % (13.4-35.0); Mean Corpuscular HGB Conc 32 % (30-34); Mean Corpuscular Volume 83 fl (79-97); Monocytes # (Auto) 0.6 K/mm3 (0.0-0.8); Monocytes % (Auto) 5.6 % (0.0-7.3); Platelet Count 334 K/mm3 (140-440); Red Blood Count 4.02 M/mm3 (3.65-5.03); Red Cell Distribution Width 14.7 % (13.2-15.2)
[2019-12-31 14:55] LABS: Alanine Aminotransferase 20 units/L (7-56); Albumin 4.2 g/dL (3.9-5); BUN/Creatinine Ratio 11; Blood Urea Nitrogen 11 mg/dL (7-17); Calcium 10.4 mg/dL (8.4-10.2); Hemolysis Index 5
[2019-12-31] MEDS ORDERED: SODIUM CHLORIDE 0.9% 1000 ML 1,000 ML IV ONE ×3 (16:35→21:27)
[2019-12-31] MEDS ORDERED: ONDANSETRON 4 MG/2 ML INJ IV ONE ×2 (16:35→18:22)
[2019-12-31] MEDS ORDERED: HYDROmorphone 1 MG/1 ML INJ IV ONE ×3 (16:41→22:12)
[2019-12-31] MEDS ORDERED: FAMOTIDINE 20 MG/2 ML INJ IV ONE (16:41)
--- NOTE | 2019-12-31 17:25 | Emergency Department Report ---
ED Abdominal Pain HPI - General Chief Complaint: Abdominal Pain Stated Complaint: ABD PAIN Time Seen by Provider: 12/31/19 14:49 Source: patient Mode of arrival: Ambulatory Limitations: No Limitations - History of Present Illness Initial Comments: 29-year-old female with am with a past medical history of diabetes, anxiety, and repeated episodes of gastroparesis presents to the hospital complaining of 2 days of nausea vomiting, abdominal pain. Pain is currently 10/10 intensity and generalized worse on the right side. Pain is sharp worse with palpation with no alleviating factors. Patient also having burning epigastric pain patient denies hematemesis, hematochezia, diarrhea, dysuria, or fever. Symptoms are previous to other gastroparesis episodes. Patient was recently admitted to [facility] for gastroparesis along with DKA. - Related Data Previous Rx's Medication Instructions Recorded Last Taken Type Magnesium Oxide [Mag-Ox] 400 mg PO QDAY #5 tablet 04/05/19 Unknown Rx Ondansetron [Zofran Odt] 4 mg PO Q8HR #15 tab.rapdis 04/05/19 Unknown Rx oxyCODONE /ACETAMINOPHEN [Percocet 1 tab PO BID PRN #6 tablet 04/05/19 Unknown Rx 5/325 mg] Allergies Allergy/AdvReac Type Severity Reaction Status Date / Time metoclopramide HCl AdvReac anxiety Verified 03/12/15 09:57 [From [facility]] ED Review of Systems ROS: Stated complaint: ABD PAIN Other details as noted in HPI Comment: All other systems reviewed and negative ED Past Medical Hx - Past Medical History Hx Congestive Heart Failure: No Hx Diabetes: Yes Hx GERD: Yes Hx Psychiatric Treatment: Yes (anxiety) Hx Asthma: No Hx COPD: No Hx HIV: No Additional medical history: Gastroparesis - Surgical History Past Surgical History?: No - Social History Smoking Status: Never Smoker - Medications Home Medications: Home Medications Medication Instructions Recorded Confirmed Last Taken Type Magnesium Oxide [Mag-Ox] 400 mg PO QDAY #5 tablet 04/05/19 Unknown Rx Ondansetron [Zofran Odt] 4 mg PO Q8HR #15 tab.rapdis 04/05/19 Unknown Rx oxyCODONE /ACETAMINOPHEN [Percocet 1 tab PO BID PRN #6 tablet 04/05/19 Unknown Rx 5/325 mg] ED Physical Exam - General Limitations: No Limitations - Other Other exam information: General: Moderate distress secondary to pain Head: Atraumatic Eyes: normal appearance ENT: Moist mucous membranes Neck: Normal appearance, no midline tenderness Chest: Clear to auscultation bilaterally CV: Tachycardic regular rhythm Abdomen: Soft, normal bowel sounds, generalized tenderness greatest in epigastric area, nondistended, no rebound or guarding Back: Normal inspection Extremity: Normal inspection, full range of motion Neuro: Alert O x 3, no facial asymmetry, speech clear, no gross motor sensory deficit Skin: No rash ED Course Vital Signs 12/31/19 12/31/19 13:49 22:18 Temperature 97.9 F 98.3 F Pulse Rate 132 H 102 H Respiratory 18 Rate Blood Pressure 143/99 Blood Pressure 176/106 [Right] O2 Sat by Pulse 98 100 Oximetry ED Medical Decision Making - Lab Data Result diagrams: 12/31/19 14:03 12/31/19 14:03 Lab Results 12/31/19 12/31/19 12/31/19 Range/Units 14:01 14:03 14:03 WBC 11.0 (4.5-11.0) K/mm3 RBC 4.02 (3.65-5.03) M/mm3 Hgb 10.7 (10.1-14.3) gm/dl Hct 33.1 (30.3-42.9) % MCV 83 (79-97) fl MCH 27 L (28-32) pg MCHC 32 (30-34) % RDW 14.7 (13.2-15.2) % Plt Count 334 (140-440) K/mm3 Lymph % (Auto) 20.3 (13.4-35.0) % [place] % (Auto) 5.6 (0.0-7.3) % Eos % (Auto) 0.5 (0.0-4.3) % Baso % (Auto) 0.5 (0.0-1.8) % Lymph # 2.2 (1.2-5.4) K/mm3 Trigg # 0.6 (0.0-0.8) K/mm3 Eos # 0.1 (0.0-0.4) K/mm3 Baso # 0.1 (0.0-0.1) K/mm3 Seg Neutrophils % 73.1 H (40.0-70.0) % Seg Neutrophils # 8.0 H (1.8-7.7) K/mm3 Sodium 142 (137-145) mmol/L Potassium 3.6 (3.6-5.0) mmol/L Chloride 101.9 (98-107) mmol/L Carbon Dioxide 20 L (22-30) mmol/L Anion Gap 24 mmol/L BUN 11 (7-17) mg/dL Creatinine 1.0 (0.6-1.2) mg/dL Estimated GFR > 60 ml/min BUN/Creatinine Ratio 11 % Glucose 72 (65-100) mg/dL POC Glucose 118 H (70-105) Calcium 10.4 H (8.4-10.2) mg/dL Magnesium (1.7-2.3) mg/dL Total Bilirubin 0.30 (0.1-1.2) mg/dL AST 26 (5-40) units/L ALT 20 (7-56) units/L Alkaline Phosphatase 95 (35-129) units/L Total Protein 8.0 (6.3-8.2) g/dL Albumin 4.2 (3.9-5) g/dL Albumin/Globulin Ratio 1.1 % Lipase (13-60) units/L HCG, Qual (Negative) Urine Color (Yellow) Urine Turbidity (Clear) Urine pH (5.0-7.0) Ur Specific [place] (1.003-1.030) Urine Protein (Negative) mg/dL Urine Glucose (UA) (Negative) mg/dL Urine Ketones (Negative) mg/dL Urine Blood (Negative) Urine Nitrite (Negative) Urine Bilirubin (Negative) Urine Urobilinogen (<2.0) mg/dL Ur Leukocyte Esterase (Negative) Urine WBC (Auto) (0.0-6.0) /HPF Urine RBC (Auto) (0.0-6.0) /HPF U Epithel Cells (Auto) (0-13.0) /HPF Urine Mucus /HPF Urine Opiates Screen Urine Methadone Screen Ur Barbiturates Screen Ur Phencyclidine Scrn Ur Amphetamines Screen U Benzodiazepines Scrn Urine Cocaine Screen U Marijuana (THC) Screen Drugs of Abuse Note 12/31/19 12/31/19 12/31/19 Range/Units 14:03 14:03 14:03 WBC (4.5-11.0) K/mm3 RBC (3.65-5.03) M/mm3 Hgb (10.1-14.3) gm/dl Hct (30.3-42.9) % MCV (79-97) fl MCH (28-32) pg MCHC (30-34) % RDW (13.2-15.2) % Plt Count (140-440) K/mm3 Lymph % (Auto) (13.4-35.0) % [place] % (Auto) (0.0-7.3) % Eos % (Auto) (0.0-4.3) % Baso % (Auto) (0.0-1.8) % Lymph # (1.2-5.4) K/mm3 [place]igg # (0.0-0.8) K/mm3 Eos # (0.0-0.4) K/mm3 Baso # (0.0-0.1) K/mm3 Seg Neutrophils % (40.0-70.0) % Seg Neutrophils # (1.8-7.7) K/mm3 Sodium (137-145) mmol/L Potassium (3.6-5.0) mmol/L Chloride (98-107) mmol/L Carbon Dioxide (22-30) mmol/L Anion Gap mmol/L BUN (7-17) mg/dL Creatinine (0.6-1.2) mg/dL Estimated GFR ml/min BUN/Creatinine Ratio % Glucose (65-100) mg/dL POC Glucose (70-105) Calcium (8.4-10.2) mg/dL Magnesium 2.30 (1.7-2.3) mg/dL Total Bilirubin (0.1-1.2) mg/dL AST (5-40) units/L ALT (7-56) units/L Alkaline Phosphatase (35-129) units/L Total Protein (6.3-8.2) g/dL Albumin (3.9-5) g/dL Albumin/Globulin Ratio % Lipase 26 (13-60) units/L HCG, Qual Negative (Negative) Urine Color (Yellow) Urine Turbidity (Clear) Urine pH (5.0-7.0) Ur Specific [place] (1.003-1.030) Urine Protein (Negative) mg/dL Urine Glucose (UA) (Negative) mg/dL Urine Ketones (Negative) mg/dL Urine Blood (Negative) Urine Nitrite (Negative) Urine Bilirubin (Negative) Urine Urobilinogen (<2.0) mg/dL Ur Leukocyte Esterase (Negative) Urine WBC (Auto) (0.0-6.0) /HPF Urine RBC (Auto) (0.0-6.0) /HPF U Epithel Cells (Auto) (0-13.0) /HPF Urine Mucus /HPF Urine Opiates Screen Urine Methadone Screen Ur Barbiturates Screen Ur Phencyclidine Scrn Ur Amphetamines Screen U Benzodiazepines Scrn Urine Cocaine Screen U Marijuana (THC) Screen Drugs of Abuse Note 12/31/19 12/31/19 12/31/19 Range/Units 15:56 Unknown Unknown WBC (4.5-11.0) K/mm3 RBC (3.65-5.03) M/mm3 Hgb (10.1-14.3) gm/dl Hct (30.3-42.9) % MCV (79-97) fl MCH (28-32) pg MCHC (30-34) % RDW (13.2-15.2) % Plt Count (140-440) K/mm3 Lymph % (Auto) (13.4-35.0) % Trigg % (Auto) (0.0-7.3) % Eos % (Auto) (0.0-4.3) % Baso % (Auto) (0.0-1.8) % Lymph # (1.2-5.4) K/mm3 Trigg # (0.0-0.8) K/mm3 Eos # (0.0-0.4) K/mm3 Baso # (0.0-0.1) K/mm3 Seg Neutrophils % (40.0-70.0) % Seg Neutrophils # (1.8-7.7) K/mm3 Sodium (137-145) mmol/L Potassium (3.6-5.0) mmol/L Chloride (98-107) mmol/L Carbon Dioxide (22-30) mmol/L Anion Gap mmol/L BUN (7-17) mg/dL Creatinine (0.6-1.2) mg/dL Estimated GFR ml/min BUN/Creatinine Ratio % Glucose (65-100) mg/dL POC Glucose 165 H (70-105) Calcium (8.4-10.2) mg/dL Magnesium (1.7-2.3) mg/dL Total Bilirubin (0.1-1.2) mg/dL AST (5-40) units/L ALT (7-56) units/L Alkaline Phosphatase (35-129) units/L Total Protein (6.3-8.2) g/dL Albumin (3.9-5) g/dL Albumin/Globulin Ratio % Lipase (13-60) units/L HCG, Qual (Negative) Urine Color Yellow (Yellow) Urine Turbidity Clear (Clear) Urine pH 9.0 H (5.0-7.0) Ur Specific [place] 1.015 (1.003-1.030) Urine Protein 100 mg/dl (Negative) mg/dL Urine Glucose (UA) >=500 (Negative) mg/dL Urine Ketones Neg (Negative) mg/dL Urine Blood Sm (Negative) Urine Nitrite Neg (Negative) Urine Bilirubin Neg (Negative) Urine Urobilinogen < 2.0 (<2.0) mg/dL Ur Leukocyte Esterase Neg (Negative) Urine WBC (Auto) 3.0 (0.0-6.0) /HPF Urine RBC (Auto) 58.0 (0.0-6.0) /HPF U Epithel Cells (Auto) 5.0 (0-13.0) /HPF Urine Mucus Few /HPF Urine Opiates Screen Presumptive negative Urine Methadone Screen Presumptive negative Ur Barbiturates Screen Presumptive negative Ur Phencyclidine Scrn Presumptive negative Ur Amphetamines Screen Presumptive negative U Benzodiazepines Scrn Presumptive negative Urine Cocaine Screen Presumptive negative U Marijuana (THC) Screen Presumptive negative Drugs of Abuse Note Disclamer - EKG Data -: EKG Interpreted by Co EKG shows normal: sinus rhythm Rate: tachycardia (105) - Radiology Data Radiology results: report reviewed CT abdomen pelvis with IV contrast: No acute abnormality - Medical Decision Making Patient to ED for several hoursrequiring multiple doses of pain medication, antiemetics, and IV fluids for persistent nausea and vomiting despite ED treatment. CT does not reveal any acute abnormality. Patient be admitted to the hospital for gastroparesis exacerbation with intractable nausea vomiting and pain Critical care attestation.: If time is entered above; I have spent that time in minutes in the direct care of this critically ill patient, excluding procedure time. ED Disposition Clinical Impression: Gastroparesis, Insulin dependent diabetes mellitus, Intractable abdominal pain Disposition: OP ADMIT IP TO THIS HOSP Is pt being admited?: Yes Condition: Stable Time of Disposition: 22:25 (DR Bah/hosp)
[2019-12-31] MEDS ORDERED: LORazepam 2 MG/ML VIAL IV ONE ×2 (18:22→22:12)
[2019-12-31] MEDS ORDERED: LORazepam 2 MG/ML VIAL ONE (18:23)
[2019-12-31 20:55] LABS: Amphetamine Screen,Urine PRESUMPTIVE NEGATIVE; Benzodiazepines Screen,Urine PRESUMPTIVE NEGATIVE; Cannabinoid Screen,Urine PRESUMPTIVE NEGATIVE; Cocaine Screen,Urine PRESUMPTIVE NEGATIVE; Methadone Screen,Urine PRESUMPTIVE NEGATIVE; Opiate Screen,Urine PRESUMPTIVE NEGATIVE
[2019-12-31 20:56] LABS: Bilirubin,Urine NEG (Negative); Blood,Urine SM (Negative); Color,Urine Yellow (Yellow); Mucus,Urine FEW /HPF; Urobilinogen,Urine < 2.0 mg/dL (<2.0)
[2019-12-31] MEDS ORDERED: ACETAMINOPHEN 650 MG RECT SUPP PR PRN (23:01)
[2019-12-31] MEDS ORDERED: DEXTROSE 50% IN WATER (25GM) 50 ML SYRINGE IV PRN (23:03)
[2019-12-31] MEDS ORDERED: SODIUM CHLORIDE 0.9% 1000 ML 1,000 ML IV SCH (23:15)
[2019-12-31] MEDS: LORazepam 2 MG/ML VIAL IV PRN (23:35)
[2019-12-31] MEDS: ONDANSETRON 4 MG/2 ML INJ IV PRN (23:35)
[2020-01-01] MEDS: HYDROmorphone 1 MG/1 ML INJ IV PRN ×5 (03:16→20:08)
[2020-01-01] MEDS: ONDANSETRON 4 MG/2 ML INJ IV PRN ×5 (03:16→20:08)
[2020-01-01] MEDS: LORazepam 2 MG/ML VIAL IV PRN ×3 (03:16→12:06)
--- NOTE | 2020-01-01 06:06 | History and Physical Report ---
History of Present Illness Date of examination: 12/31/19 Date of admission: 12/31/19 22:26 Chief complaint: Abdominal Pain History of present illness: 29 year old female presenting with abdominal pain associated with nausea and vomiting, there is no history of diarrhea or constipation, also patient denied history of fever or chills, shortness of breath, chest pain or body aches. Patient states she is having similar symptoms many times in the past.. Past History Past Medical History: diabetes, GERD, other (ANXIETY, GASTROPARESIS) Past Surgical History: No surgical history Social history: no significant social history Family history: no significant family history Medications and Allergies Allergies Allergy/AdvReac Type Severity Reaction Status Date / Time metoclopramide HCl AdvReac anxiety Verified 03/12/15 09:57 [From [facility]] Home Medications Medication Instructions Recorded Confirmed Last Taken Type Magnesium Oxide [Mag-Ox] 400 mg PO QDAY #5 tablet 04/05/19 01/01/20 Unknown Rx Ondansetron [Zofran Odt] 4 mg PO Q8HR #15 tab.rapdis 04/05/19 01/01/20 Unknown Rx oxyCODONE /ACETAMINOPHEN [Percocet 1 tab PO BID PRN #6 tablet 04/05/19 01/01/20 Unknown Rx 5/325 mg] Active Meds: Active Medications Acetaminophen (Tylenol) 650 mg WA Q4H PRN PRN Reason: Fever >101 Dextrose (D50w (25gm) Syringe) 0 ml IV Q30MIN PRN; Protocol PRN Reason: Hypoglycemia Enoxaparin Sodium (Enoxaparin) 40 mg SUB-Q QDAY WINIFRED Hydromorphone HCl (Dilaudid) 1 mg IV Q4H PRN PRN Reason: Pain , Severe (7-10) Last Admin: 01/01/20 03:16 Dose: 1 mg Documented by: Sodium Chloride (Nacl 0.9% 1000 Ml) 1,000 mls @ 125 mls/hr IV DIRECT WINIFRED Last Admin: 12/31/19 23:37 Dose: 125 mls/hr Documented by: Insulin Human Regular (Humulin R) 0 unit SUB-Q ACHS WINIFRED; Protocol Insulin Human Regular (Humulin R) 0 unit SUB-Q QHS WINIFRED; Protocol Lorazepam (Ativan) 1 mg IV Q4H PRN PRN Reason: Anxiety Last Admin: 01/01/20 03:16 Dose: 1 mg Documented by: Ondansetron HCl (Zofran) 4 mg IV Q4H PRN PRN Reason: Nausea And Vomiting Last Admin: 01/01/20 03:16 Dose: 4 mg Documented by: Review of Systems Constitutional: weakness, no weight loss, no weight gain, no fever, no chills, no sweats, no anorexia, no fatigue, no malaise Eyes: bilateral: other (NO BILATERAL EYE SYMPTOMS) Ears, nose, mouth and throat: no ear pain, no ear discharge, no tinnitis, no decreased hearing, no nose pain, no nasal congestion, no nasal discharge, no sinus pressure, no dental pain, no mouth pain, no dysphagia, no hoarseness, no sore throat, no headache, no vertigo Breasts: deferred Cardiovascular: no chest pain, no orthopnea, no syncope, no lightheadedness, no shortness of breath Respiratory: no cough, no cough with sputum, no excessive sputum, no hemoptysis, no shortness of breath, no dyspnea on exertion, no congestion, no pleurisy, no pain on inspiration Gastrointestinal: abdominal pain, nausea, vomiting, no diarrhea, no constipation, no change in bowel habits, no hematemesis, no coffee ground emesis, no melena, no hematochezia, no loss of appetite, no early satiety, no heartburn, no indigestion Genitourinary Female: no dyspareunia, no menorrhagia, no dysuria, no urgency Rectal: no pain, no itching Musculoskeletal: no neck stiffness, no neck pain Integumentary: no rash, no pruritis, no redness, no sores, no wounds, no growths, no bullae, no lesions Neurological: no paralysis, no weakness, no parathesias, no numbness, no tingling, no seizures, no syncope, no tremors, no vertigo, no headaches, no convulsions, no change in speech, no change in mentation, no confusion Psychiatric: no anxiety, no paranoia, no confusion Endocrine: no cold intolerance, no heat intolerance, no polyphagia, no polydipsia, no polyuria, no nocturia, no excessive sweating, no flushing Hematologic/Lymphatic: no easy bruising, no easy bleeding, no lymphadenopathy Allergic/Immunologic: no urticaria, no allergic rhinitis, no persistent infections, no anaphylaxis Exam - Constitutional Vitals: Temp Pulse Resp BP Pulse Ox 98.7 F 99 H 16 153/99 100 01/01/20 03:58 01/01/20 03:58 01/01/20 03:58 01/01/20 03:58 01/01/20 03:58 General appearance: Present: no acute distress - EENT Eyes: Present: PERRL, EOM intact ENT: hearing intact, clear oral mucosa - Neck Neck: Present: supple, normal ROM - Respiratory Respiratory effort: normal - Cardiovascular Rhythm: regular Heart Sounds: Present: S1 & S2. Absent: gallop, systolic murmur - Extremities Extremities: no ischemia, No edema Peripheral Pulses: within normal limits - Abdominal General gastrointestinal: Present: soft, non-tender, non-distended. Absent: t pablo, distended, rigid, mass Female genitourinary: Present: deferred - Rectal Rectal Exam: deferred - Integumentary Integumentary: Present: clear, warm, dry. Absent: jaundice, rash - Musculoskeletal Musculoskeletal: strength equal bilaterally, right sided weakness - Psychiatric Psychiatric: appropriate mood/affect HEART Score - HEART Score Risk factors: No known risk factors Troponin: < normal limit - Critical Actions Critical Actions: 0-3 pts:0.9-1.7%risk of adverse cardiac event.Candidate for discharge Results - Labs CBC & Chem 7: 12/31/19 14:03 12/31/19 14:03 Labs: Laboratory Last Values WBC 11.0 K/mm3 (4.5-11.0) 12/31/19 14:03 RBC 4.02 M/mm3 (3.65-5.03) 12/31/19 14:03 Hgb 10.7 gm/dl (10.1-14.3) 12/31/19 14:03 Hct 33.1 % (30.3-42.9) 12/31/19 14:03 MCV 83 fl (79-97) 12/31/19 14:03 MCH 27 pg (28-32) L 12/31/19 14:03 MCHC 32 % (30-34) 12/31/19 14:03 RDW 14.7 % (13.2-15.2) 12/31/19 14:03 Plt Count 334 K/mm3 (140-440) 12/31/19 14:03 Lymph % (Auto) 20.3 % (13.4-35.0) 12/31/19 14:03 [place] % (Auto) 5.6 % (0.0-7.3) 12/31/19 14:03 Eos % (Auto) 0.5 % (0.0-4.3) 12/31/19 14:03 Baso % (Auto) 0.5 % (0.0-1.8) 12/31/19 14:03 Lymph # 2.2 K/mm3 (1.2-5.4) 12/31/19 14:03 [place] # 0.6 K/mm3 (0.0-0.8) 12/31/19 14:03 Eos # 0.1 K/mm3 (0.0-0.4) 12/31/19 14:03 Baso # 0.1 K/mm3 (0.0-0.1) 12/31/19 14:03 Seg Neutrophils % 73.1 % (40.0-70.0) H 12/31/19 14:03 Seg Neutrophils # 8.0 K/mm3 (1.8-7.7) H 12/31/19 14:03 Sodium 142 mmol/L (137-145) 12/31/19 14:03 Potassium 3.6 mmol/L (3.6-5.0) 12/31/19 14:03 Chloride 101.9 mmol/L (98-107) 12/31/19 14:03 Carbon Dioxide 20 mmol/L (22-30) L 12/31/19 14:03 Anion Gap 24 mmol/L 12/31/19 14:03 BUN 11 mg/dL (7-17) 12/31/19 14:03 Creatinine 1.0 mg/dL (0.6-1.2) 12/31/19 14:03 Estimated GFR > 60 ml/min 12/31/19 14:03 BUN/Creatinine Ratio 11 % 12/31/19 14:03 Glucose 72 mg/dL (65-100) 12/31/19 14:03 POC Glucose 236 (70-105) H 12/31/19 23:36 Calcium 10.4 mg/dL (8.4-10.2) H 12/31/19 14:03 Magnesium 2.30 mg/dL (1.7-2.3) 12/31/19 14:03 Total Bilirubin 0.30 mg/dL (0.1-1.2) 12/31/19 14:03 AST 26 units/L (5-40) 12/31/19 14:03 ALT 20 units/L (7-56) 12/31/19 14:03 Alkaline Phosphatase 95 units/L (35-129) 12/31/19 14:03 Total Protein 8.0 g/dL (6.3-8.2) 12/31/19 14:03 Albumin 4.2 g/dL (3.9-5) 12/31/19 14:03 Albumin/Globulin Ratio 1.1 % 12/31/19 14:03 Lipase 26 units/L (13-60) 12/31/19 14:03 HCG, Qual Negative (Negative) 12/31/19 14:03 Urine Color Yellow (Yellow) 12/31/19 Unknown Urine Turbidity Clear (Clear) 12/31/19 Unknown Urine pH 9.0 (5.0-7.0) H 12/31/19 Unknown Ur Specific [place] 1.015 (1.003-1.030) 12/31/19 Unknown Urine Protein 100 mg/dl mg/dL (Negative) 12/31/19 Unknown Urine Glucose (UA) >=500 mg/dL (Negative) 12/31/19 Unknown Urine Ketones Neg mg/dL (Negative) 12/31/19 Unknown Urine Blood Sm (Negative) 12/31/19 Unknown Urine Nitrite Neg (Negative) 12/31/19 Unknown Urine Bilirubin Neg (Negative) 12/31/19 Unknown Urine Urobilinogen < 2.0 mg/dL (<2.0) 12/31/19 Unknown Ur Leukocyte Esterase Neg (Negative) 12/31/19 Unknown Urine WBC (Auto) 3.0 /HPF (0.0-6.0) 12/31/19 Unknown Urine RBC (Auto) 58.0 /HPF (0.0-6.0) 12/31/19 Unknown U Epithel Cells (Auto) 5.0 /HPF (0-13.0) 12/31/19 Unknown Urine Mucus Few /HPF 12/31/19 Unknown Urine Opiates Screen Presumptive negative 12/31/19 Unknown Urine Methadone Screen Presumptive negative 12/31/19 Unknown Ur Barbiturates Screen Presumptive negative 12/31/19 Unknown Ur Phencyclidine Scrn Presumptive negative 12/31/19 Unknown Ur Amphetamines Screen Presumptive negative 12/31/19 Unknown U Benzodiazepines Scrn Presumptive negative 12/31/19 Unknown Urine Cocaine Screen Presumptive negative 12/31/19 Unknown U Marijuana (THC) Screen Presumptive negative 12/31/19 Unknown Drugs of Abuse Note Disclamer 12/31/19 Unknown Jorgensen/IV: Voiding Method Toilet IV Catheter Type [Right thumb] Peripheral IV IV Catheter Type [Left Foot] INT / Saline Lock Assessment and Plan - Patient Problems (1) Gastroparesis Current Visit: Yes Status: Acute Plan to address problem: 1. I.V ZOFRAN FOR NAUSEA AND VOMITING 2. I.V NORMAL SALINE FLUID 3. I.V DILUDID FOR PAIN 4. ACCUCHECKS AND SLIDING SCALE INSULIN COVERAGE (2) Intractable abdominal pain Current Visit: Yes Status: Acute Plan to address problem: 1. I.V DILUDID PRN PAIN 2. I.V ZOFRAN FOR NAUSEA AND VOMITING
[2020-01-01] MEDS: INSULIN REGULAR, HUMAN 100 UNIT/ML 3ML VIAL SUB-Q SCH ×4 (07:30→21:04)
[2020-01-01] MEDS: ENOXAPARIN 40 MG/0.4 ML INJ SUB-Q SCH (09:18)
[2020-01-01 10:52] LABS: BUN/Creatinine Ratio 10; Blood Urea Nitrogen 9 mg/dL (7-17); Hemolysis Index 34
[2020-01-01] MEDS ORDERED: ENALAPRILAT 2.5 MG/2 ML INJ IV PRN (14:51)
--- NOTE | 2020-01-01 14:52 | Progress Note ---
Assessment and Plan - Patient Problems (1) Gastroparesis Current Visit: Yes Status: Acute Plan to address problem: -Antiemetics PRN -IV fluid for now and will advance to CC diet -PRN analgesic -PO Pepcid (2) Intractable abdominal pain Current Visit: Yes Status: Acute Plan to address problem: - PRN IV and PO analgesia; Colace for constipation prevention - Supportive care (3) Insulin dependent diabetes mellitus Current Visit: Yes Status: Chronic Plan to address problem: - SSI - Accucheck ACHS (4) DVT prophylaxis Current Visit: No Status: Acute Plan to address problem: - SCDs to BLE while in bed - subq lovenox History Interval history: 29-year-old female with IDDM, anxiety, GERD and repeated episodes of gastrop aresis presents to the hospital on 12/30 complaining of 2 days of nausea, vomiting, abdominal pain. Her presentation she complains of generalized sharp abdominal pain with a 10/10 intensity which is generalized but worse on the right side and with palpitation. She also stated she was having having burning epigastric pain. In the emergency department she received 4 L of IV fluid, 2 mg of Ativan, 20 mg Pepcid and Dilaudid x3. Of note she was recently at [facility] for DKA and gastroparesis. CT abdomen pelvis with contrast was obtained in the emergency department however there is no read and the image has not been loaded into Before the Call. This morning she complains of diffuse abdominal pain. RN reports patient frequently requests Ativan, Dilaudid and Zofran at the same time and does not want to participate in her care. At the time of my exam patient would like to discharge this afternoon as she has a trip to [place]. Hospitalist Physical - Constitutional Vitals: Temp Pulse Resp BP Pulse Ox 98.1 F 102 H 20 143/95 98 01/01/20 10:51 01/01/20 10:51 01/01/20 10:51 01/01/20 10:51 01/01/20 10:51 General appearance: Present: no acute distress - EENT Eyes: Present: EOM intact ENT: hearing intact, clear oral mucosa - Neck Neck: Present: supple, normal ROM - Respiratory Respiratory effort: normal Respiratory: bilateral: CTA - Cardiovascular Rhythm: regular Heart Sounds: Present: S1 & S2. Absent: systolic murmur - Extremities Extremities: no ischemia, pulses intact, pulses symmetrical, No edema, normal temperature, normal color, Full ROM Peripheral Pulses: within normal limits - Abdominal General gastrointestinal: tender, non-distended, normal bowel sounds Localized gastrointestinal: tender: diffuse - Integumentary Integumentary: Present: clear, warm, dry - Psychiatric Psychiatric: cooperative - Neurologic Neurologic: CNII-XII intact, no focal deficits, moves all extremities - Allied Health Allied health notes reviewed: nursing HEART Score - HEART Score Risk factors: No known risk factors Troponin: < normal limit - Critical Actions Critical Actions: 0-3 pts:0.9-1.7%risk of adverse cardiac event.Candidate for discharge Results - Labs CBC & Chem 7: 12/31/19 14:03 01/01/20 09:04 Labs: Laboratory Last Values WBC 11.0 K/mm3 (4.5-11.0) 12/31/19 14:03 RBC 4.02 M/mm3 (3.65-5.03) 12/31/19 14:03 Hgb 10.7 gm/dl (10.1-14.3) 12/31/19 14:03 Hct 33.1 % (30.3-42.9) 12/31/19 14:03 MCV 83 fl (79-97) 12/31/19 14:03 MCH 27 pg (28-32) L 12/31/19 14:03 MCHC 32 % (30-34) 12/31/19 14:03 RDW 14.7 % (13.2-15.2) 12/31/19 14:03 Plt Count 334 K/mm3 (140-440) 12/31/19 14:03 Lymph % (Auto) 20.3 % (13.4-35.0) 12/31/19 14:03 [place] % (Auto) 5.6 % (0.0-7.3) 12/31/19 14:03 Eos % (Auto) 0.5 % (0.0-4.3) 12/31/19 14:03 Baso % (Auto) 0.5 % (0.0-1.8) 12/31/19 14:03 Lymph # 2.2 K/mm3 (1.2-5.4) 12/31/19 14:03 [place] # 0.6 K/mm3 (0.0-0.8) 12/31/19 14:03 Eos # 0.1 K/mm3 (0.0-0.4) 12/31/19 14:03 Baso # 0.1 K/mm3 (0.0-0.1) 12/31/19 14:03 Seg Neutrophils % 73.1 % (40.0-70.0) H 12/31/19 14:03 Seg Neutrophils # 8.0 K/mm3 (1.8-7.7) H 12/31/19 14:03 Sodium 132 mmol/L (137-145) L D 01/01/20 09:04 Potassium 4.3 mmol/L (3.6-5.0) 01/01/20 09:04 Chloride 97.9 mmol/L (98-107) L 01/01/20 09:04 Carbon Dioxide 19 mmol/L (22-30) L 01/01/20 09:04 Anion Gap 19 mmol/L 01/01/20 09:04 BUN 9 mg/dL (7-17) 01/01/20 09:04 Creatinine 0.9 mg/dL (0.6-1.2) 01/01/20 09:04 Estimated GFR > 60 ml/min 01/01/20 09:04 BUN/Creatinine Ratio 10 % 01/01/20 09:04 Glucose 390 mg/dL (65-100) H 01/01/20 09:04 POC Glucose 281 (70-105) H 01/01/20 11:34 Hemoglobin A1c 8.9 % (4-6) H 01/01/20 09:04 Calcium 9.0 mg/dL (8.4-10.2) 01/01/20 09:04 Magnesium 2.30 mg/dL (1.7-2.3) 12/31/19 14:03 Total Bilirubin 0.30 mg/dL (0.1-1.2) 12/31/19 14:03 AST 26 units/L (5-40) 12/31/19 14:03 ALT 20 units/L (7-56) 12/31/19 14:03 Alkaline Phosphatase 95 units/L (35-129) 12/31/19 14:03 Total Protein 8.0 g/dL (6.3-8.2) 12/31/19 14:03 Albumin 4.2 g/dL (3.9-5) 12/31/19 14:03 Albumin/Globulin Ratio 1.1 % 12/31/19 14:03 Lipase 26 units/L (13-60) 12/31/19 14:03 HCG, Qual Negative (Negative) 12/31/19 14:03 Urine Color Yellow (Yellow) 12/31/19 Unknown Urine Turbidity Clear (Clear) 12/31/19 Unknown Urine pH 9.0 (5.0-7.0) H 12/31/19 Unknown Ur Specific [place] 1.015 (1.003-1.030) 12/31/19 Unknown Urine Protein 100 mg/dl mg/dL (Negative) 12/31/19 Unknown Urine Glucose (UA) >=500 mg/dL (Negative) 12/31/19 Unknown Urine Ketones Neg mg/dL (Negative) 12/31/19 Unknown Urine Blood Sm (Negative) 12/31/19 Unknown Urine Nitrite Neg (Negative) 12/31/19 Unknown Urine Bilirubin Neg (Negative) 12/31/19 Unknown Urine Urobilinogen < 2.0 mg/dL (<2.0) 12/31/19 Unknown Ur Leukocyte Esterase Neg (Negative) 12/31/19 Unknown Urine WBC (Auto) 3.0 /HPF (0.0-6.0) 12/31/19 Unknown Urine RBC (Auto) 58.0 /HPF (0.0-6.0) 12/31/19 Unknown U Epithel Cells (Auto) 5.0 /HPF (0-13.0) 12/31/19 Unknown Urine Mucus Few /HPF 12/31/19 Unknown Urine Opiates Screen Presumptive negative 12/31/19 Unknown Urine Methadone Screen Presumptive negative 12/31/19 Unknown Ur Barbiturates Screen Presumptive negative 12/31/19 Unknown Ur Phencyclidine Scrn Presumptive negative 12/31/19 Unknown Ur Amphetamines Screen Presumptive negative 12/31/19 Unknown U Benzodiazepines Scrn Presumptive negative 12/31/19 Unknown Urine Cocaine Screen Presumptive negative 12/31/19 Unknown U Marijuana (THC) Screen Presumptive negative 12/31/19 Unknown Drugs of Abuse Note Disclamer 12/31/19 Unknown Jorgensen/IV: Voiding Method Toilet IV Catheter Type [Right thumb] Peripheral IV IV Catheter Type [Left Foot] INT / Saline Lock Active Medications - Current Medications Current Medications: Generic Name Dose Route Start Last Admin Trade Name Freq PRN Reason Stop Dose Admin Acetaminophen 650 mg 12/31/19 23:01 Tylenol MA Q4H PRN Fever >101 Dextrose 0 ml 12/31/19 23:03 D50w (25gm) Syringe IV Q30MIN PRN Hypoglycemia Protocol Enalaprilat 0.65 mg 01/01/20 14:51 Vasotec IV Q6HR PRN Hypertension Enoxaparin Sodium 40 mg 01/01/20 10:00 01/01/20 09:18 Enoxaparin SUB-Q Not Given QDAY WINIFRED Hydromorphone HCl 1 mg 12/31/19 22:57 01/01/20 12:06 Dilaudid IV 1 mg Q4H PRN Administration Pain , Severe (7-10) Sodium Chloride 1,000 mls @ 125 mls/hr 12/31/19 23:15 12/31/19 23:37 Nacl 0.9% 1000 Ml IV 125 mls/hr DIRECT WINIFRED Administration Insulin Human Regular 0 unit 01/01/20 07:30 01/01/20 11:30 Humulin R SUB-Q 3 unit ACHS WINIFRED Administration Protocol Insulin Human Regular 0 unit 01/01/20 22:00 Humulin R SUB-Q QHS WINIFRED Protocol Lorazepam 1 mg 12/31/19 23:00 01/01/20 12:06 Ativan IV 1 mg Q4H PRN Administration Anxiety Ondansetron HCl 4 mg 12/31/19 23:00 01/01/20 12:06 Zofran IV 4 mg Q4H PRN Administration Nausea And Vomiting
[2020-01-01] MEDS ORDERED: oxyCODONE /ACETAMINOPHEN 5-325MG TAB PO PRN (15:03)
[2020-01-01] MEDS ORDERED: LORazepam 2 MG/ML VIAL IV PRN (15:04)
[2020-01-01] MEDS ORDERED: INSULIN NPH/REGULAR 70/30 INJ SUB-Q ONE (20:00)
[2020-01-01] MEDS: DOCUSATE SODIUM 100 MG CAP PO SCH (21:04)
[2020-01-01] MEDS: FAMOTIDINE 10 MG TAB PO SCH (21:16)
[2020-01-01] MEDS ORDERED: INSULIN REGULAR, HUMAN 100 UNIT/ML 3ML VIAL SUB-Q SCH (22:00)
[2020-01-02] MEDS: ONDANSETRON 4 MG/2 ML INJ IV PRN ×2 (00:25→04:45)
[2020-01-02] MEDS: HYDROmorphone 1 MG/1 ML INJ IV PRN ×2 (00:25→05:10)
[2020-01-02 05:44] LABS: BUN/Creatinine Ratio 9; Blood Urea Nitrogen 7 mg/dL (7-17); Calcium 8.7 mg/dL (8.4-10.2); Hemolysis Index 1
[2020-01-02] MEDS ORDERED: INSULIN NPH/REGULAR 70/30 INJ SUB-Q SCH (08:00)
[2020-01-02] MEDS ORDERED: HYDROmorphone 1 MG/1 ML INJ IV PRN (08:23)
[2020-01-02] MEDS: INSULIN REGULAR, HUMAN 100 UNIT/ML 3ML VIAL SUB-Q SCH ×2 (08:35→12:39)
[2020-01-02] MEDS ORDERED: amLODIPine 5 MG TAB PO SCH (10:00)
--- NOTE | 2020-01-02 10:09 | Discharge Summary ---
Providers - Providers Date of Admission: 12/31/19 22:26 Attending physician: PAIGE MCFARLAND Primary care physician: [employer]ER Hospitalization Condition: Stable Pertinent studies: 12/30 CT abd/pelvis with no acute abnormality Hospital course: 29-year-old female with IDDM, anxiety, GERD and repeated episodes of gastroparesis presents to the hospital on 12/30 complaining of 2 days of nausea, vomiting, abdominal pain. Her presentation she complains of generalized sharp abdominal pain with a 10/10 intensity which is generalized but worse on the right side and with palpitation. She also stated she was having having burning epigastric pain. In the emergency department she received 4 L of IV fluid, 2 mg of Ativan, 20 mg Pepcid and Dilaudid x3. Of note she was recently at [facility] for DKA and gastroparesis. CT abdomen pelvis with contrast was obtained in the emergency department which shows no acute abnormality. She presented with intractable nausea and vomiting but remains hemodynamically stable. She will be discharged with PO pepcid, insulin 70/03 with 20 units in the morning and evening for better DM control. Please follow up with your PCP within 3-5 days and f/u with an numerical control nesting operator outpatient for better DM control. (1) Gastroparesis Current Visit: Yes Status: Acute Plan to address problem: - Educated on need to better control DM - Continue PO Pepcid (2) Intractable abdominal pain Current Visit: Yes Status: Acute Plan to address problem: - Colace for constipation prevention - Discharged with PO pain medication - Supportive care (3) Insulin dependent diabetes mellitus Current Visit: Yes Status: Chronic Plan to address problem: - Will need to f/u with an numerical control nesting operator - Will be discharged with home 70/30 insulin (4) Intractable nausea and vomiting Current Visit: Yes Status: acute Plan to address problem: - Will be discharged with zofran as needed - Hemodynamic stable Disposition: DC-01 TO HOME OR SELFCARE Time spent for discharge: 35 Core Measure Documentation - Palliative Care Palliative Care/ Comfort Measures: Not Applicable - Core Measures Any of the following diagnoses?: none Exam - Constitutional Vitals: Temp Pulse Resp BP Pulse Ox 98.7 F 95 H 20 158/99 100 01/02/20 05:08 01/02/20 05:08 01/02/20 05:08 01/02/20 05:08 01/02/20 05:08 General appearance: Present: no acute distress - EENT Eyes: Present: PERRL, EOM intact ENT: hearing intact, clear oral mucosa - Neck Neck: Present: supple, normal ROM - Respiratory Respiratory effort: normal Respiratory: bilateral: CTA - Cardiovascular Rhythm: regular Heart Sounds: Present: S1 & S2. Absent: systolic murmur, diastolic murmur - Extremities Extremities: no ischemia, pulses intact, No edema, normal temperature, normal color, Full ROM Peripheral Pulses: within normal limits - Abdominal General gastrointestinal: Present: soft, non-tender, non-distended, normal bowel sounds - Integumentary Integumentary: Present: clear, warm, dry - Musculoskeletal Musculoskeletal: strength equal bilaterally - Psychiatric Psychiatric: appropriate mood/affect, cooperative - Neurologic Neurologic: CNII-XII intact, no focal deficits, moves all extremities, gait normal - Allied Health Allied health notes reviewed: nursing Plan Activity: advance as tolerated Diet: diabetic Special Instructions: record blood sugar diary, home health RN Additional Instructions: Please contact your PCP or present to the nearest ED if you experience worsening symptoms. Please followup with your PCP within 3-5 days of discharge. Please establish care with an numerical control nesting operator outpatint for better control of your diabetes and we encourage complience with medications. Follow up with: PRIMARY CARE,MD [Primary Care Provider] - 7 Days RONEL COLLINS MD [Referring] - 7 Days KIMBERLY CHRISTIANSEN MD [Staff Physician] - 7 Days Prescriptions: amLODIPine 5 mg PO QDAY #30 tablet Insulin NPH/Regular [NovoLIN 70/30] 22 unit SUB-Q BIDDIAB #1 vial Insulin Regular, Human [Novolin R] See Protocol SC QACHS #1 vial Famotidine [Pepcid] 10 mg PO BID #60 tablet oxyCODONE /ACETAMINOPHEN [Percocet 5/325 mg] 1 tab PO BID PRN #6 tablet PRN Reason: Pain, Moderate (4-6) Ondansetron [Zofran ODT TAB] 4 mg PO Q8HR #15 tab.senia
[2020-01-02] MEDS: DOCUSATE SODIUM 100 MG CAP PO SCH (11:03)
[2020-01-02] MEDS: ENOXAPARIN 40 MG/0.4 ML INJ SUB-Q SCH (11:03)
[2020-01-02] MEDS: FAMOTIDINE 10 MG TAB PO SCH (11:03)
[2020-01-02] MEDS ORDERED: ONDANSETRON 4 MG ODT TAB PO ONE (12:24)
[2020-01-02 13:07] VITALS: BP 126/84
--- NOTE | 2020-01-06 16:46 | Cat Scan Report ---
CT abdomen pelvis w con INDICATION: n,v, abd pain, hx of gastroparesis. COMPARISON: 10/21/2015. TECHNIQUE: Abdominal and pelvic CT exam performed. All CT scans at this location are performed using CT dose reduction for ALARA by means of automated exposure control. FINDINGS: CT ABDOMEN and PELVIS: Lung Bases: No significant abnormality. Liver: No significant abnormality. Biliary: No significant abnormality. Spleen: No significant abnormality. Pancreas: No significant abnormality. Adrenals: No significant abnormality. Kidneys: No significant abnormality. Lymphatics: No lymphadenopathy. Vasculature: No significant abnormality. Bowel/Peritoneum: No significant abnormality. Moderate quantity of stool.Normal appendix. Pelvis: Small quantity of fluid is seen within the pelvis which is common in a emphysema likely physi ologic. Osseous Structures: No aggressive osseous lesion. Additional Findings: None IMPRESSION: 1. No acute abnormality of the abdomen or pelvis. Signer Name: Ezequiel Gonzalez MD Signed: 12/31/2019 8:03 PM Workstation Name: [id number]
== END 2020-01-02 14:30 | disposition home or self-care (01) ==
LOC: ED 13:44 → 3A 22:26
PROVIDERS: ADMIT Internal Medicine; ATTEND Internal Medicine
DX: K31.84 Gastroparesis (principal); E11.9 Type 2 diabetes mellitus without complications; K21.9 Gastro-esophageal reflux disease without esophagitis; F41.9 Anxiety disorder, unspecified; Z79.4 Long term (current) use of insulin; Z79.899 Other long term (current) drug therapy
CPT/HCPCS: 36415; 74177; 80048; 80053; 80307; 81001; 82962; 83036; 83690; 83735; 84703; 85025; 87641; 93005; 96361; 96372; 96374; 96375; 96376; 99285; G0378; J1170; J2060; J2405; J7030; Q9967; J1815; Q0162